=== PATIENT | female | born 2005 | race Caucasian/White ===

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

== ENCOUNTER 2023-07-26 22:23 | Emergency (ER) | payer MEDICAID, SELFPAY ==
[2023-07-26 22:26] VITALS: BP 144/95; PULSE 122; RESP 18; TEMP 36.7; O2SAT 98
--- NOTE | 2023-07-26 22:30 | W.ED.GENAD ---
Discharge Plan Disposition Patient Disposition: Home Condition: Good Discharge Details Clinical Impression: Biliary colic Primary Care Provider: Unknown,Unknown ED Provider: Ba Powers Home Meds and New Rx's Prescriptions: No Action Nexplanon 68 mg implant 1 implant subdermal ONCE Rx Instructions: as a single dose albuterol sulfate [ProAir HFA] 90 mcg/actuation HFA aerosol inhaler 2 puff Inhalation Q4H PRN Qty: 8.5 0RF dextroamphetamine-amphetamine [Adderall] 12.5 mg tablet 12.5 mg PO DAILY MDD 12.5 mg Qty: 30 0RF Rx Instructions: take one tablet in the afternoon daily dextroamphetamine-amphetamine [Adderall XR] 30 mg capsule,extended release 24hr 30 mg PO DAILY MDD 1 Qty: 30 0RF Discharge Instructions Instructions: Biliary Colic (ED), Abdominal Pain (ED) Additional Instructions: At this time you have what is called biliary colic where your gallbladder is spasming which causes pain. Please avoid greasy foods, fatty foods, or dairy products as this can bring about this pain and spasm. If your symptoms persist you may need to be seen by a surgeon to have your gallbladder removed in the future although this is not needed at this time or emergently. If you notice any worsening of your symptoms, or any new symptoms such as vomiting, diarrhea, fever, chills, shortness of breath, chest pain, numbness, weakness, or fainting , please return immediately to the emergency department for reevaluation. Please follow up with your primary care provider as soon as possible for reassessment and reevaluation. As always, it was a pleasure participating in your medical care today. HPI General Date/Time Provider Initiated Documentation: 07/26/23 22:25. HPI Narrative: 17-year-old female with a past medical history of Implanon contraception, ADHD, asthma, ADHD, depression, presents today for evaluation of abdominal pain. States that about 30 minutes ago she was eating dinner when she had sudden severe aching pain throughout her entire abdomen. She had no vomiting. She states that her stomach felt firm and rockhard. She has nausea. She denies diarrhea. She began walking to the ER when her family picked her up, brought her to the ER. She denies any urinary complaints, pain is throughout her entire abdomen, but mostly in the upper abdomen. She denies fever or chills. No other sick contacts of people who ate the food with her. She had chicken pot pie and noodles. She denies symptoms like this in the past. Related Data Home Medications Medication Instructions Recorded Confirmed albuterol sulfate 90 mcg/actuation 2 puff inhalation Q4H PRN #8.5 05/11/18 07/26/23 aerosol inhaler (ProAir HFA) grams etonogestrel 68 mg subdermal 1 implant subdermal ONCE 05/10/20 07/26/23 implant (Nexplanon) dextroamphetamine-amphetamine 12.5 12.5 mg PO DAILY #30 tabs 06/22/21 07/26/23 mg tablet (Adderall) dextroamphetamine-amphetamine ER 30 mg PO DAILY #30 caps 06/22/21 07/26/23 30 mg 24hr capsule,extend release (Adderall XR) Previous Rx's Medication Instructions Recorded albuterol sulfate 90 mcg/actuation 2 puff inhalation Q4H PRN #8.5 05/11/18 aerosol inhaler (ProAir HFA) grams dextroamphetamine-amphetamine 12.5 12.5 mg PO DAILY #30 tabs 06/22/21 mg tablet (Adderall) dextroamphetamine-amphetamine ER 30 mg PO DAILY #30 caps 06/22/21 30 mg 24hr capsule,extend release (Adderall XR) Allergies Allergy/AdvReac Type Severity Reaction Status Date / Time Penicillins Allergy Intermediate RASH Verified 07/26/23 22:31 amoxicillin Allergy Other (See Verified 07/26/23 22:31 Comment) General Stated Complaint: Abd Prob CHUY: 3 Review of Systems All systems reviewed & are unremarkable except as noted in HPI and below Exam Narrative Exam Narrative: 1.Const: Well-nourished, Well-developed, appearing stated age 2.Eyes: PERRL, no conjunctival injection, and symmetrical lids. 3.ENT: Atraumatic external nose and ears. Moist MM. Neck: Symmetric, trachea midline, No thyromegaly. 4.CVS: +S1/S2, No murmurs or gallops. Peripheral pulses 2+ and equal in all extremities. Brisk capillary refill in all extremities. 5.RESP: Unlabored respiratory effort. Clear to auscultation bilaterally. No wheezes rales or rhonchi 6.GI: Soft, nondistended. No guarding. Mild to moderate tenderness in the epigastric and right upper quadrant. No pain at McBurney's point. No significant lower abdominal tenderness. 7.MSK: Normocephalic/Atraumatic, Extremities w/o deformity or ttp No cyanosis or clubbing, Normal movement of all extremities 8.Skin: Warm, Dry. No rashes or lesions. 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 Sensation grossly intact, no focal neurologic deficits. 10.Psych: (AAO) x3. Appropriate mood and affect Course Vital Signs Vital signs: Vital Signs Temperature 36.7 C 07/26/23 22:26 Pulse 122 H 07/26/23 22:26 Respiratory Rate 18 07/26/23 22:26 Blood Pressure 144/95 H 07/26/23 22:26 Pulse Oximetry 98 07/26/23 22:26 Temperature 36.7 C 07/26/23 22:26 Pulse 122 H 07/26/23 22:26 Respiratory Rate 18 07/26/23 22:26 Blood Pressure 144/95 H 07/26/23 22:26 Pulse Oximetry 98 07/26/23 22:26 Oxygen Delivery Method Room Air 07/26/23 22:26 Oxygen Flow Rate 0 07/26/23 22:26 Pain Level 10 07/26/23 22:26 Medical Decision Making 17-year-old female with a past medical history of Implanon contraception, ADHD, asthma, ADHD, depression, presents today for evaluation of abdominal pain. States that about 30 minutes ago she was eating dinner when she had sudden severe aching pain throughout her entire abdomen. She had no vomiting. She states that her stomach felt firm and rockhard. She has nausea. She denies diarrhea. She began walking to the ER when her family picked her up, brought her to the ER. She denies any urinary complaints, pain is throughout her entire abdomen, but mostly in the upper abdomen. She denies fever or chills. No other sick contacts of people who ate the food with her. She had chicken pot pie and noodles. She denies symptoms like this in the past. Physical exam demonstrates well-appearing female who appears to be in mild to moderate pain. Pain appears to be mostly in the epigastric and right upper quadrant. Differential is highest for biliary colic, pancreatitis, less likely obstruction. Symptoms appearing consistent with AAA clinically. Pulses intact throughout all extremities with no variability. Abdomen is nonsurgical at this time. Will hold off on imaging for the time being, give Toradol, check labs, give Bentyl, rehydrate monitor closely and reassess. 12:28 AM Patient's laboratory workup has returned, minimal white count, no bandemia. Electrolytes normal, urinalysis negative for infection, lipase normal. Patient had only mild improvement of her pain with Toradol and Zofran and Bentyl. Repeat exam continues to show right upper quadrant tenderness/achiness. 4 of morphine was given. CT scan was ordered, CT scan shows no evidence of cholecystitis or appendicitis, however there is a notably contra gallbladder. No biliary ductal dilatation. Patient shows no other concerning abnormalities on CT imaging per radiology. Patient feels much better on reassessment after reassessment and CT imaging. Pain has resolved. Symptoms appear consistent with mild biliary colic. Will recommend avoidance of greasy foods, dairy products, and other exacerbating foods. Patient states that she may have a hard time with this secondary to the nature of how her family cooks. I encouraged her to avoid these foods. I have extensively reviewed the treatment plan and discharge instructions with the patient. I have addressed all patient concerns at this time. The patient was made aware of what symptoms to monitor for that would warrant a return to the emergency department. Discussed the plan with the patient, they demonstrate verbal understanding and agreement with our assessment and plan at this time. The documentation in this chart was dictated using [employer] dictation software. Please excuse any dictation errors. FINDINGS: Liver: No hepatic masses. Gallbladder and bile ducts: The gallbladder is contracted. No significant biliary dilation or radiopaque stones in the biliary tree. Pancreas: No ductal dilation. No masses. Spleen: No splenomegaly or focal lesions. Adrenal glands: No mass. Kidneys and ureters: No renal masses or hydronephrosis bilaterally. Stomach and bowel: Submucosal fat deposition in the colon, likely habitus and or diet related. Moderate colonic stool burden. No colitis or diverticular disease. Appendix: Normal morphology of the appendix. Intraperitoneal space: No free air. No significant fluid collection. Vasculature: No abdominal aortic aneurysm. Lymph nodes: Mesenteric lymph nodes appear within normal limits for age. No significant adenopathy is seen. Urinary bladder: Unremarkable as visualized. Reproductive: Unremarkable as visualized. Bones/joints: Minor distal lumbar spondylosis. No acute fracture or subluxation. Soft tissues: No focal soft tissue lesion or collection. Other findings: Motion artifact in the abdomen. IMPRESSION: 1. No acute findings. 2. Incidental findings as described. Thank you for allowing us to participate in the care of your patient. Dictated and Authenticated by: Leena Gonzalez MD 07/27/2023 12:12 AM Eastern Time ([place] & [place]) Quality:SDOH Health Related Social Needs: No Data to Display PFSH All Active Problems (Updated 07/27/23 @ 00:24 by Ba Powers DO) Biliary colic (Acute) Contusion of rib on right side (Acute) Insomnia (Acute) Acne (Acute) Nausea & vomiting (Acute) Concussion (Acute) Cervical strain (Acute) Well adolescent visit (Acute) Depression (Acute) Learning difficulty (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) per school tested w/ low IQ Contraception (Acute 09/15/17) Attention deficit hyperactivity disorder (ADHD) (Chronic 06/16/12) Medical History Asthma Allergy to penicillin ADHD (attention deficit hyperactivity disorder) Insomnia History of abnormal weight loss Surgical History lump removal, behind right ear Had surgery at [facility] [place] Removal of foreign body ROCK REMOVED FROM EAR Family History Mother Diabetes Essential hypertension Conductive hearing loss, childhood onset Hyperlipidemia Mental disorder BIPOLAR, depression, anxiety Neoplasm ADHD (attention deficit hyperactivity disorder) Asthma Father Essential hypertension Hyperlipidemia Sister Substance abuse alcohol abuse Other Substance abuse grandparent - alcohol Hyperlipidemia grandparent Neoplasm grandparent Asthma grandparent Social History Smoking/Tobacco Use Status: Never Smoking risk assessment performed?: Yes Alcohol Intake: never Drug use: Never Substance use type: does not use Pets and animals: Yes Pets and animals: cat(s), bird(s) and other Details: rabbit Do you feel safe at home: Yes Do you feel safe in your relationship?: Yes Additional Social history: sister Felicity Mitchell, 2 yrs younger History History 0 Para Hx # Term Pregnancies Multiple births Hx # Pregnancies Ectopic pregnancies AB induced Hx Number of Living Children AB spontaneous
[2023-07-26] MEDS: Ondansetron 4 MG/2 ML VIAL IVP (22:36)
[2023-07-26] MEDS: Ketorolac 15 MG/ML VIAL IVP (22:37)
[2023-07-26] MEDS: Dicyclomine 10 MG CAP PO (22:39)
[2023-07-26] MEDS: Lactated Ringers 1,000 ML 1000 ML IV (22:39)
[2023-07-26 23:00] LABS: Abs Immature Grans 0.04 10^3/uL (0.0-0.06); Absolute Eosinophil Count 0.08 10^3/uL (0.0-0.7); Absolute Lymphocyte Count 3.08 10^3/uL (1.2-3.4); Basophils % 0.4; Eosinophils % 0.6; HCT 43.9 % (36.0-46.0); HGB 14.9 g/dL (11.2-15.7); Immature Grans % 0.3; Lymphocytes % 22.7; MCH 28.9 pg (27.0-33.0); MCHC 33.9 % (32.0-36.0); MCV 85 fL (80-95); MPV 10.6 fL (8.0-11.0); Monocytes % 6.3; Neutrophils % 69.7; Platelet Count 323 10^3/uL (130-400); RBC 5.16 10^6/uL (3.93-5.22); RDW 13.1 % (11.7-14.6); RDW-SD 40.7 fL; WBC 13.57 10^3/uL (4.4-10.8)
[2023-07-26 23:01] LABS: Absolute Basophil Count 0.05 10^3/uL (0.0-0.2); Absolute Monocyte Count 0.85 10^3/uL (0.1-0.8); Absolute Neutrophil Count 9.46 10^3/uL (1.2-6.7)
[2023-07-26 23:10] LABS: Bilirubin Negative (Negative); Blood Negative (Negative); Clarity Clear (Clear); Glucose Negative (Negative); Ketones Negative (Negative); Leukocyte Esterase Negative (Negative); Nitrite Negative (Negative); Specific Gravity >= 1.030 (1.005-1.025); Urobilinogen 0.2 mg/dL (Up to 0.2)
[2023-07-26 23:13] LABS: ALT 25 U/L (14-59); AST 21 U/L (15-37); Albumin 4.3 g/dL (3.4-5.0); Alkaline Phosphatase 106 U/L (46-116); Anion Gap 13.3 mmol/L (3-11); BUN 13 mg/dL (7-18); Bilirubin, Total 0.4 mg/dL (0.2-1.0); CO2 26.7 mmol/L (21.0-32.0); CREATININE 0.9 mg/dL (0.55-1.02); Calcium 8.9 mg/dL (8.5-10.1); Chloride 104 mmol/L (98-107); Estimated GFR 94.44 (mL/min/1.73m2); Glucose 115 mg/dL (74-106); Lipase 28 U/L (16-77); Potassium 3.5 mmol/L (3.5-5.1); Sodium 144 mmol/L (136-145); Total Protein 8.1 g/dL (6.4-8.2)
[2023-07-26 23:14] LABS: Bacteria Rare HPF (Negative); C & S Indicated? No; Casts Negative LPF (Negative); Crystals Negative HPF (Negative); Epithelial Cells Many HPF (Negative); Mucus Negative (Negative); RBC 0-2 HPF (0-2); WBC 0-2 HPF (0-5)
[2023-07-26] MEDS: MORPHine 4 MG/ML SYR IVP (23:48)
--- NOTE | 2023-07-26 23:50 | DI.CT_ITS ---
Exam(s) CT ABDOMEN PELVIS W EXAM: CT ABDOMEN PELVIS W CLINICAL HISTORY: epigastric and RUQ pain, eval GB. TECHNIQUE: Imaging Protocol: Axial computed tomography images with coronal and sagittal reformatted images were created and reviewed CONTRAST MATERIAL: Intravenous: Omnipaque 350 Contrast volume:100 ml Oral: no COMPARISON: No exams were available for comparison FINDINGS: ABDOMEN and PELVIS: Exam mildly limited by motion. Lung Bases: No acute findings. Liver: Normal density. No measurable mass. Gallbladder and biliary tract: Gallbladder is contracted. There is motion artifact in this area. No radiodense calculus or biliary dilation. Pancreas: Normal density. No abnormal calcifications or inflammatory process. No evidence of mass. Spleen: Normal. Kidneys: Normal size, contour and axis. No radiodense stones. No obstructive uropathy. No suspicious masses seen. Adrenal glands: No masses seen. Vasculature: Abdominal aorta non-dilated. Soft tissues: Unremarkable. Bladder: Nearly empty. No gross wall thickening. No calculi.No focal mass. Bowel: No obstruction. No bowel wall thickening. Appendix normal.Moderate quantity of stool. Peritoneal cavity: No ascites. No focal collection or mesenteric inflammatory response. Bones: Mild degenerative disc changes at L5-S1. Reproductive organs: Within normal limits. Lymph nodes: Unremarkable. IMPRESSION:: No acute abnormality in the abdomen or pelvis. RADIATION DOSE DELIVERED: Total DLP DATA REPOSITORY: All CT scans at this facility are submitted to the National Radiology Data Registry (NRDR) Dose Index Registry (DIR) with the [employer] (ACR). RADIATION OPTIMIZATION: All CT scans at this facility use at least one of these dose optimization te chniques: automated exposure control; mA and/or kV adjustment per patient size (includes targeted exa ms where dose is matched to clinical indication); or iterative reconstruction.
[2023-07-26] MEDS: Omnipaque 350 MG/ML 100 ML BTL IJ (23:51)
[2023-07-26] MEDS: Normal Saline - Diluent 50 ML VIAL IJ (23:51)
--- NOTE | 2023-07-27 00:13 | DI.VRAD_ITS ---
PROCEDURE INFORMATION: Exam: CT Abdomen And Pelvis With Contrast Exam date and time: 07/26/2023 23:35 Age: 17 years old Clinical indication: Other: Epigastric and ruq pain, eval gb TECHNIQUE: Imaging protocol: Computed tomography of the abdomen and pelvis with contrast. Contrast material: OMNIPAQUE 350; Contrast volume: 100 ml; Contrast route: INTRAVENOUS (IV); COMPARISON: CR XR RIBS RT W PA LAT CHEST 03/19/2021 16:49 FINDINGS: Liver: No hepatic masses. Gallbladder and bile ducts: The gallbladder is contracted. No significant biliary dilation or radiopaque stones in the biliary tree. Pancreas: No ductal dilation. No masses. Spleen: No splenomegaly or focal lesions. Adrenal glands: No mass. Kidneys and ureters: No renal masses or hydronephrosis bilaterally. Stomach and bowel: Submucosal fat deposition in the colon, likely habitus and or diet related. Moderate colonic stool burden. No colitis or diverticular disease. Appendix: Normal morphology of the appendix. Intraperitoneal space: No free air. No significant fluid collection. Vasculature: No abdominal aortic aneurysm. Lymph nodes: Mesenteric lymph nodes appear within normal limits for age. No significant adenopathy is seen. Urinary bladder: Unremarkable as visualized. Reproductive: Unremarkable as visualized. Bones/joints: Minor distal lumbar spondylosis. No acute fracture or subluxation. Soft tissues: No focal soft tissue lesion or collection. Other findings: Motion artifact in the abdomen. IMPRESSION: 1. No acute findings. 2. Incidental findings as described. Dictated and Authenticated by: Leena Gonzalez MD. Ordering:EMILY Cosme MD
[2023-07-27 00:33] VITALS: BP 137/69; PULSE 72; RESP 16; O2SAT 99
[2023-07-27] MEDS: Acetaminophen 500 MG TAB 1000 MG PO (00:33)
== END 2023-07-27 00:35 | disposition home or self-care (01) ==
PROVIDERS: Emergency Provider Student in an Organized Health Care Education/Training Program
DX: R10.11 Right upper quadrant pain (principal); R11.0 Nausea; K80.50 Calculus of bile duct without cholangitis or cholecystitis without obstruction
CPT/HCPCS: 36415; 80053; 81025; 83690; 96361; 96374; 96375; 99285; 74177; 81003; 81015; 85025; 99283; J1885; J2270; J2405; J3490

== ENCOUNTER → 2023-08-12 05:19 | Outpatient (CLI) | payer MEDICAID, SELFPAY ==
--- NOTE | 2023-08-12 | DI.US_ITS ---
Exam(s) US ABDOMEN EXAM: US ABDOMEN CLINICAL HISTORY: ABD PAIN, R10.9 TECHNIQUE: Ultrasound abdomen performed using standard protocol. COMPARISON: CT CT ABDOMEN PELVIS W from 07/26/2023 FINDINGS: ABDOMINAL AORTA AND IVC: Visualized portions normal caliber. PANCREAS: Normal where visualized. LIVER: Normal. Hepatopetal flow in the Portal Vein. The liver measures 14.4 cm long. GALLBLADDER:No evidence of cholelithiasis. No evidence of wall thickening. No pericholecystic fluid i dentified. BILIARY SYSTEM: Common bile duct measures < 7 mm. No intrahepatic biliary ductal dilation. LINDSEY'S SIGN: Negative. KIDNEYS: Kidneys are symmetric in size. No evidence of renal calculi. No evidence of hydronephrosis. No renal mass or cyst identified. SPLEEN: Not enlarged. ASCITES: None seen. IMPRESSION: Normal sonographic appearance of the upper abdomen. DATA REPOSITORY:
== END ==
PROVIDERS: Visit Provider Nurse Practitioner Family
DX: R10.9 Unspecified abdominal pain (principal)
CPT/HCPCS: 76700

== ENCOUNTER 2023-11-01 01:16 | Emergency (ER) | payer MEDICAID, SELFPAY ==
[2023-11-01] VITALS (25 sets, daily range): BP systolic 96–193; BP diastolic 53–178; PULSE 65–161; RESP 5–24; TEMP 36.3; O2SAT 89–100
--- NOTE | 2023-11-01 01:23 | ED.GENADUL_ITS ---
Discharge Plan Disposition Patient Disposition: Home Condition: Good Discharge Details Chief Complaint: SOB/SuddenOnset Clinical Impression: Asthma exacerbation Primary Care Provider: Mariela Lawson ED Provider: Ba Powers Home Meds and New Rx's Prescriptions: No Action Nexplanon 68 mg implant 1 implant subdermal ONCE Rx Instructions: as a single dose albuterol sulfate [ProAir HFA] 90 mcg/actuation HFA aerosol inhaler 2 puff Inhalation Q4H PRN Qty: 8.5 0RF dextroamphetamine-amphetamine [Adderall] 12.5 mg tablet 15 mg PO DAILY MDD 12.5 mg Rx Instructions: take one tablet in the afternoon daily Discharge Instructions Instructions: Asthma in adults Additional Instructions: At this time your chest x-ray shows no evidence of pneumonia or other significant abnormality. Your oxygen saturations are excellent, and you have no more wheezes on your exam. I suspect you had a mild asthma exacerbation. Please continue to use your inhaler at home as needed. Avoid tobacco or cannabis smoke exposure. If you notice any worsening of your symptoms, or any new symptoms such as vomiting, diarrhea, fever, chills, shortness of breath, chest pain, numbness, weakness, or fainting , please return immediately to the emergency department for reevaluation. Please follow up with your primary care provider as soon as possible for reassessment and reevaluation. As always, it was a pleasure participating in your medical care today. Referrals: Mariela Lawson [Primary Care Provider] - [facility] General Date/Time Provider Initiated Documentation: 11/01/23 01:23 . HPI Narrative: 18-year-old female with a past medical history of ADHD, asthma, presents today for shortness of breath. Patient states that she was down at [facility] when her significant other was smoking a joint. Shortly thereafter she began to feel short of breath. She states that it feels like her previous asthma exacerbations. She got very nervous and her hands began to shake, then she was brought to the ER for further assessment. She denies any chest pain headache neck pain numbness tingling or weakness. She denies any drug use or personal smoking. She is not exposed to any other wood fire smoke. No other complaints at this time. She states her last eczema exacerbation was a few weeks ago. Related Data Home Medications ?Medication ?Instructions ?Recorded ?Confirmed albuterol sulfate 90 mcg/actuation 2 puff inhalation Q4H PRN #8.5 05/11/18 aerosol inhaler (ProAir HFA) grams etonogestrel 68 mg subdermal 1 implant subdermal ONCE 05/10/20 11/01/23 implant (Nexplanon) dextroamphetamine-amphetamine 12.5 15 mg PO DAILY 11/01/23 11/01/23 mg tablet (Adderall) Previous Rx's ?Medication ?Instructions ?Recorded albuterol sulfate 90 mcg/actuation 2 puff inhalation Q4H PRN #8.5 05/11/18 aerosol inhaler (ProAir HFA) grams Allergies Allergy/AdvReac Type Severity Reaction Status Date / Time Penicillins Allergy Intermediate RASH Verified 09/22/23 15:22 amoxicillin Allergy Other (See Verified 09/22/23 15:22 Comment) General CHUY: 3 Review of Systems All systems reviewed & are unremarkable except as noted in HPI and below Exam Narrative Exam Narrative: 1.Const: Well-nourished, Well-developed, appearing stated age 2.Eyes: PERRL, no conjunctival injection, and symmetrical lids. 3.ENT: Atraumatic external nose and ears. Moist MM. Neck: Symmetric, trachea midline, No thyromegaly. 4.CVS: +S1/S2, No murmurs or gallops. Peripheral pulses 2+ and equal in all extremities. Brisk capillary refill in all extremities. 5.RESP: Tachypneic. Minimal wheezes. No rhonchi. No rales. 6.GI: Soft, Nontender/Nondistended, No hepatosplenomegaly. No guarding or rebound. 7.MSK: Normocephalic/Atraumatic, Extremities w/o deformity or ttp No cyanosis or clubbing, Normal movement of all extremities 8.Skin: Warm, Dry. No rashes or lesions. 9.Neuro: nutrition internship II-XII grossly intact. Sensation grossly intact, no focal neurologic deficits. 10.Psych: (AAO) x3. Very anxious appearing Medical Decision Making 18-year-old female with a past medical history of ADHD, asthma, presents today for shortness of breath. Patient states that she was down at [facility] when her significant other was smoking a joint. Shortly thereafter she began to feel short of breath. She states that it feels like her previous asthma exacerbations. She got very nervous and her hands began to shake, then she was brought to the ER for further assessment. She denies any chest pain headache neck pain numbness tingling or weakness. She denies any drug use or personal smoking. She is not exposed to any other wood fire smoke. No other complaints at this time. She states her last eczema exacerbation was a few weeks ago. Exam demonstrates an anxious and tachypneic female, no chest pain. Minimal wheezes. No calf tenderness. No history of PEs. Symptoms appearing consistent with PE, dissection or ACS. Symptoms appear more concerning for an asthma exacerbation based on current clinical symptomatology. Will give a DuoNeb, monitor closely and reassess. No trauma to suggest pneumothorax. No fever or chills to represent pneumonia. 3:36 AM X-ray results have returned, no acute process, lungs are notably clear, oxygenation excellent. Patient is feeling much better. No tachypnea, no shortness of breath whatsoever. She was given a small dose of Ativan IV and this made a significant difference. I suspect she had a combination of reactive airway exacerbation secondary to exposure to the cannabis smoke from her sig nificant other, and then exacerbated potentially by an anxious component. Regardless the patient feels well at this time and is stable for discharge. Patient will be discharged home. Recommend continued albuterol use as needed. Discussed red flags which to return. I have extensively reviewed the treatment plan and discharge instructions with the patient and their family. I have addressed all patient concerns at this time. The patient and family was made aware of what symptoms to monitor for that would warrant a return to the emergency department. Discussed the plan with the patient and family, they demonstrate verbal understanding and agreement with our assessment and plan at this time. The documentation in this chart was dictated using [employer] dictation software. Please excuse any dictation errors. FINDINGS: Lungs: Unremarkable. No consolidation. Pleural spaces: Unremarkable. No pleural effusion. No pneumothorax. Heart/Mediastinum: Unremarkable. No cardiomegaly. Bones/joints: Unremarkable. IMPRESSION: No acute findings. Thank you for allowing us to participate in the care of your patient. 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 Contraception (Acute 09/22/23) Nexplanon Attention deficit hyperactivity disorder (ADHD) (Chronic 06/16/12) Medical History Asthma Allergy to penicillin ADHD (attention deficit hyperactivity disorder) Insomnia History of abnormal weight loss Surgical History lump removal, behind right ear [place] [facility] [place] body ROCK REMOVED FROM EAR Family History Mother Diabetes Essential hypertension Conductive hearing loss, childhood onset Hyperlipidemia Mental disorder BIPOLAR, depression, anxiety Neoplasm ADHD (attention deficit hyperactivity disorder) Asthma Father Essential hypertension Hyperlipidemia Sister Substance abuse alcohol abuse Other Substance abuse grandparent - alcohol Hyperlipidemia grandparent Neoplasm grandparent Asthma grandparent Social History Smoking/Tobacco Use Status: Never Smoking risk assessment performed?: Yes Alcohol Intake: never Drug use: Rarely Substance use type: marijuana Details: Hx of hyperemesis from cannabinoids. Pets and animals: Yes Pets and animals: cat(s), bird(s) and other Details: rabbit Do you feel safe at home: Yes Do you feel safe in your relationship?: Yes Additional Social history: sister Felicity Mitchell, 2 yrs younger History History 0 Para Hx # Term Pregnancies Multiple births Hx # Pregnancies Ectopic pregnancies AB induced Hx Number of Living Children AB spontaneous
[2023-11-01] MEDS: Albuterol/Ipratropium 3 ML UPD VIAL (01:24)
--- NOTE | 2023-11-01 01:45 | DI.RAD_ITS ---
Exam(s) XR PORTABLE CHEST AP EXAM: XR PORTABLE CHEST AP CLINICAL HISTORY: SOB, asthma TECHNIQUE: 2D digital imaging was performed of the chest. One image was obtained. An AP view was ob tained. COMPARISON: CR,XR XR RIBS RT W PA LAT CHEST from 03/19/2021 FINDINGS: MEDIASTINUM: Normal. HEART: Normal. PULMONARY VASCULATURE: Normal. LUNGS: Clear. PLEURAL SPACE: No pleural effusion or pneumothorax. BONE:Within normal limits for the patient's age. OTHER FINDINGS:Normal. IMPRESSION: No acute pulmonary findings. DATA REPOSITORY: RADIATION DOSE DELIVERED:
[2023-11-01] MEDS: LORazepam 0.5 MG TAB PO (02:25)
--- NOTE | 2023-11-01 03:28 | DI.VRAD_ITS ---
PROCEDURE INFORMATION: Exam: XR Chest Exam date and time: 11/01/2023 2:43 AM Age: 18 years old Clinical indication: Shortness of breath; Additional info: SOB, asthma TECHNIQUE: Imaging protocol: Radiologic exam of the chest. Views: 1 view. COMPARISON: CR XR RIBS RT W PA LAT CHEST 03/19/2021 4:49 PM FINDINGS: Lungs: Unremarkable. No consolidation. Pleural spaces: Unremarkable. No pleural effusion. No pneumothorax. Heart/Mediastinum: Unremarkable. No cardiomegaly. Bones/joints: Unremarkable. IMPRESSION: No acute findings. Dictated and Authenticated by: Eric Meraz MD. Ordering:EMILY Cosme MD
== END 2023-11-01 04:20 | disposition home or self-care (01) ==
PROVIDERS: Emergency Provider Student in an Organized Health Care Education/Training Program; PCP Nurse Practitioner Family
DX: J45.901 Unspecified asthma with (acute) exacerbation (principal); F41.9 Anxiety disorder, unspecified
CPT/HCPCS: 81025; 94640; 99285; 71045; 99284; J7620

== ENCOUNTER 2023-11-07 20:17 | Emergency (ER) | payer MEDICAID, SELFPAY ==
[2023-11-07] VITALS (93 sets, daily range): BP systolic 110–138; BP diastolic 68–105; PULSE 74–93; RESP 10–32; TEMP 36.8; O2SAT 95–100
--- NOTE | 2023-11-07 20:30 | RT.EKG_ITS ---
APPROVED REPORT Exam: Resting ECG Reason for Exam: CP/SOB Patient Location: E HR:83 bpm ECG Measurements Heart Rate 83 AXIS [place] 137 P 0 QRSd 89 QRS 33 QT 368 T 31 QTc 434 Conclusion Sinus rhythm...normal P axis, V-rate 60- 99
--- NOTE | 2023-11-07 20:30 | DI.RAD_ITS ---
Exam(s) XR CHEST 2V PA LATERAL EXAM: XR CHEST 2V PA LATERAL CLINICAL HISTORY: CP/SOB TECHNIQUE: 2D digital imaging was performed. Two views. COMPARISON: No exams were available for comparison FINDINGS: HEART: Normal size. Aorta: Not dilated. PULMONARY VASCULATURE: Normal. MEDIASTINUM: Unremarkable. LUNGS: Clear. PLEURAL SPACE: No pleural effusion or pneumothorax. BONE:Unremarkable for age. SOFT TISSUES: Unremarkable. IMPRESSION: No acute abnormality. DATA REPOSITORY: RADIATION DOSE DELIVERED:
--- NOTE | 2023-11-07 20:32 | ED.GENADUL_ITS ---
Discharge Plan Disposition Patient Disposition: Home Discharge Details Clinical Impression: Dizziness, Dehydration, Chest discomfort Primary Care Provider: Mariela Lawson ED Provider: Alvina Casas Home Meds and New Rx's Prescriptions: No Action Nexplanon 68 mg implant 1 implant subdermal ONCE Rx Instructions: as a single dose albuterol sulfate [ProAir HFA] 90 mcg/actuation HFA aerosol inhaler 2 puff Inhalation Q4H PRN Qty: 8.5 0RF dextroamphetamine-amphetamine [Adderall] 12.5 mg tablet 15 mg PO DAILY MDD 12.5 mg Rx Instructions: take one tablet in the afternoon daily Discharge Instructions Additional Instructions: Please call your primary care provider first thing Friday morning to schedule follow-up appointment in the next couple of weeks. I recommend that you discuss today's emergency department visit. Your workup today was very reassuring. Symptoms are likely caused by dehydration. Please be sure to drink plenty of water throughout the day and eat regular meals. Return to emergency care if you develop new episodes of passing out, difficulty breathing, severe abdominal pain, or if you are very worried and need to be rechecked again immediately Referrals: Mariela Lawson [Primary Care Provider] - [facility] General Date/Time Provider Initiated Documentation: 11/07/23 20:19 . [facility] Narrative: Joann is a 18 year old female who presents to the emergency department today for evaluation of syncopal episode, as well as chest pain. She reports that this afternoon she was laying in bed and got up, felt dizzy, warm, nauseated, this resulted in her passing out. She attempted to walk to the emergency department, but en route she developed chest discomfort, abdominal pains described as a generalized stabbing pain in her abdomen, and numbness to her fingers. She denies fever/chills, headache, vision changes, congestion, sore throat, cough, nausea/vomiting, change in bowel or bladder function. She does have Nexplanon implant in place. She says she does not take medication for anxiety, but does have anxiety attacks with numbness in her hands. She does not know how much she had to drink today, says that she only urinated once. Physical exam very reassuring. Patient is alert and oriented, no acute distress. Tacky mucous membranes. Easy work of breathing, lung sounds clear bilaterally. Normal heart sounds. Abdomen is soft, diffusely tender to palpation, normal active bowel sounds. No rigidity or guarding. Moving all extremities equally. No calf swelling or redness. No obvious lesions or rashes. DDx includes but is not limited to: Cardiac arrhythmia, ACS less likely based on lack of cardiac risk factors and reassuring history, dehydration, electrolyte imbalance, orthostatic hypotension, anxiety, GERD, hypoglycemia. Heart score 0 indicating low risk of Mace. I independently interpreted the following tests: CBC reassuring, only mild leukocytosis with white cell count 11.61. CMP unremarkable. TSH reassuring. Troponin negative. UA reassuring, moderate blood noted. EKG reassuring, normal sinus rhythm rate 83, no changes consistent with acute ischemia. Chest x-ray reassuring, no infiltrates or cardiomegaly noted, this was confirmed by radiologist. While in the emergency department Joann received 1 L normal saline and Toradol with good improvement in symptoms, says she is feeling totally better at this time. She has been able to tolerate p.o. meka dave without difficulty. Unclear etiology of symptoms, likely anxiety related or mild dehydration. No red flags on history or physical exam concerning for serious etiology of syncope. Reviewed discharge instructions with patient, including importance of good hydration, regular meals throughout the day, and follow-up with PCP as needed. Related Data Home Medications ?Medication ?Instructions ?Recorded ?Confirmed albuterol sulfate 90 mcg/actuation 2 puff inhalation Q4H PRN #8.5 05/11/18 11/07/23 aerosol inhaler (ProAir HFA) grams etonogestrel 68 mg subdermal 1 implant subdermal ONCE 05/10/20 11/07/23 implant (Nexplanon) dextroamphetamine-amphetamine 12.5 15 mg PO DAILY 11/01/23 11/07/23 mg tablet (Adderall) Previous Rx's ?Medication ?Instructions ?Recorded albuterol sulfate 90 mcg/actuation 2 puff inhalation Q4H PRN #8.5 05/11/18 aerosol inhaler (ProAir HFA) grams Allergies Allergy/AdvReac Type Severity Reaction Status Date / Time Penicillins Allergy Intermediate RASH Verified 11/07/23 19:59 amoxicillin Allergy Other (See Verified 11/07/23 19:59 Comment) General Stated Complaint: Dizzy/Sync CHUY: 3 Review of Systems Narrative: see HPI Exam Const General: cooperative, healthy appearing, comfortable, no acute distress, well developed and anxious Nutritional Appearance: average body habitus HENMA Head: normal to inspection General nose exam: external nose normal Face and sinus: normal facial exam and dry mucous membranes Mouth: oral mucosae normal Throat: posterior oropharynx normal Eyes Pupils: PERRL EOM: EOM intact bilaterally Resp Effort & Inspection: normal respiratory effort and able to speak in complete sentences Auscultation: clear to auscultation bilaterally Cardio Rate: regular rate Rhythm: regular rhythm GI Inspection: normal to inspection and non-distended Palpation: soft, no guarding, no pulsatile masses, not rigid and tender (diffuse) Auscultation: normal bowel sounds Skin General skin exam: no rashes or lesions noted Course Vital Signs Vital signs: Vital Signs Temperature 36.8 C 11/07/23 20:21 Pulse 89 11/07/23 20:21 Respiratory Rate 22 11/07/23 20:21 Blood Pressure 138/105 H 11/07/23 20:21 Pulse Oximetry 95 11/07/23 20:21 Temperature 36.8 C 11/07/23 20:21 Temperature Source Temporal Artery Scan 11/07/23 20:21 Pulse 89 11/07/23 20:21 Respiratory Rate 22 11/07/23 20:21 Blood Pressure 138/105 H 11/07/23 20:21 Blood Pressure Position Sitting 11/07/23 20:21 Pulse Oximetry 95 11/07/23 20:21 Oxygen Delivery Method Room Air 11/07/23 20:21 Oxygen Flow Rate 0 11/07/23 20:21 Pain Level 8 11/07/23 20:21 Medical Decision Making Quality:SDOH Health Related Social Needs: No Data to Display PFSH All Active Problems (Updated 11/07/23 @ 22:51 by Alvina Rea) Chest discomfort (Acute) Dehydration (Acute) Dizziness (Acute) Asthma exacerbation (Acute) Contusion of rib on right side (Acute) Insomnia (Acute) Acne (Acute) Nausea & vomiting (Acute) Concussion (Acute) Cervical strain (Acute) Well adolescent visit (Acute) Depression (Acute) Learning difficulty (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) per school 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/ low IQ Contraception (Acute 09/22/23) Nexplanon Attention deficit hyperactivity disorder (ADHD) (Chronic 06/16/12) Medical History Asthma Allergy to penicillin ADHD (attention deficit hyperactivity disorder) Insomnia History of abnormal weight loss Surgical History lump removal, behind right ear Had [place] [facility] [place] Removal of foreign body ROCK REMOVED FROM EAR Family History Mother Diabetes Essential hypertension Conductive hearing loss, childhood onset Hyperlipidemia Mental disorder BIPOLAR, depression, anxiety Neoplasm ADHD (attention deficit hyperactivity disorder) Asthma Father Essential hypertension Hyperlipidemia Sister Substance abuse alcohol abuse Other Substance abuse grandparent - alcohol Hyperlipidemia grandparent Neoplasm grandparent Asthma grandparent Social History Smoking/Tobacco Use Status: Never Smoking risk assessment performed?: Yes Alcohol Intake: never Drug use: Rarely Substance use type: marijuana Details: Hx of hyperemesis from cannabinoids. Pets and animals: Yes Pets and animals: cat(s), bird(s) and other Details: rabbit Do you feel safe at home: Yes Do you feel safe in your relationship?: Yes Additional Social history: sister Felicity Mitchell, 2 yrs younger History History 0 Para Hx # Term Pregnancies Multiple births Hx # Pregnancies Ectopic pregnancies AB induced Hx Number of Living Children AB spontaneous
[2023-11-07 20:37] LABS: Abs Immature Grans 0.04 10^3/uL (0.0-0.06); Absolute Basophil Count 0.05 10^3/uL (0.0-0.2); Absolute Eosinophil Count 0.03 10^3/uL (0.0-0.7); Absolute Lymphocyte Count 2.33 10^3/uL (1.2-3.4); Absolute Monocyte Count 0.77 10^3/uL (0.1-0.8); Absolute Neutrophil Count 8.39 10^3/uL (1.2-6.7); Basophils % 0.4 %; Eosinophils % 0.3 %; HGB 14.7 g/dL (11.2-15.7); Immature Grans % 0.3 %; Lymphocytes % 20.1 %; MCH 29.3 pg (27.0-33.0); MCHC 34.2 % (32.0-36.0); MCV 86 fL (80-95); MPV 10.7 fL (8.0-11.0); Monocytes % 6.6 %; Neutrophils % 72.3 %; Platelet Count 262 10^3/uL (130-400); RBC 5.02 10^6/uL (3.93-5.22); RDW 12.6 % (11.7-14.6); RDW-SD 39.4 fL; WBC 11.61 10^3/uL (4.4-10.8)
[2023-11-07] MEDS: Normal Saline 1,000 ML 1000 ML IV (20:56)
[2023-11-07] MEDS: Ketorolac 15 MG/ML VIAL IVP (20:56)
[2023-11-07 21:02] LABS: ALT 24 U/L (14-59); AST 15 U/L (15-37); Albumin 4.5 g/dL (3.4-5.0); Alkaline Phosphatase 83 U/L (46-116); Anion Gap 8.2 mmol/L (3-11); BUN 16 mg/dL (7-18); CO2 28.8 mmol/L (21.0-32.0); Calcium 9.6 mg/dL (8.5-10.1); Chloride 105 mmol/L (98-107); Estimated GFR 82.71 (mL/min/1.73m2); Glucose 104 mg/dL (74-106); Potassium 3.6 mmol/L (3.5-5.1); Sodium 142 mmol/L (136-145); TSH 2.12 uIU/Ml (0.36-3.74); Total Protein 8.3 g/dL (6.4-8.2); Troponin I < 50 ng/L (< or =60)
[2023-11-07 21:29] LABS: Bilirubin Negative (Negative); Blood Moderate (Negative); Clarity Clear (Clear); Glucose Negative (Negative); Ketones Trace mg/dL (Negative); Leukocyte Esterase Negative (Negative); Nitrite Negative (Negative); Specific Gravity 1.025 (1.005-1.025)
[2023-11-07 21:43] LABS: Bacteria Rare HPF (Negative); C & S Indicated? No/Sq. Contamination; Casts Negative LPF (Negative); Crystals Negative HPF (Negative); Epithelial Cells Moderate HPF (Negative); Mucus Moderate (Negative); Other Cells Rare Transitional (Negative); RBC 0-2 HPF (0-2); WBC 0-2 HPF (0-5)
--- NOTE | 2023-11-07 22:45 | DI.VRAD_ITS ---
PROCEDURE INFORMATION: Exam: XR Chest Exam date and time: 11/07/2023 9:39 PM Age: 18 years old Clinical indication: Shortness of breath; Additional info: Cp/sob TECHNIQUE: Imaging protocol: Radiologic exam of the chest. Views: 2 views. COMPARISON: CR XR PORTABLE CHEST AP 11/01/2023 2:43 AM FINDINGS: Lungs: Unremarkable. No consolidation. Pleural spaces: Unremarkable. No pleural effusion. No pneumothorax. Heart/Mediastinum: Unremarkable. No cardiomegaly. Bones/joints: Unremarkable. IMPRESSION: No acute findings. Dictated and Authenticated by: Rafael Landry MD. Ordering:ANTHONY Tinsley MD
[2023-11-07 22:55] LABS: Troponin I < 50 ng/L (< or =60)
--- NOTE | 2023-11-08 06:30 | NUR.NOTE ---
Faxed refferal for follow up to [facility] for recommended 1-2 weeks for syncope. Confirmation received. HB Nursing Note:
== END 2023-11-07 23:16 | disposition home or self-care (01) ==
LOC: ER 22:50 → RED 23:16
PROVIDERS: Emergency Provider Nurse Practitioner Family; PCP Nurse Practitioner Family
DX: R42 Dizziness and giddiness (principal); E86.0 Dehydration; R07.89 Other chest pain
CPT/HCPCS: 80053; 81025; 87637; 93005; 96361; 96374; 99285; 71046; 81003; 81015; 83735; 84443; 84484; 85025; 93010; 99284; J1885

== ENCOUNTER 2024-01-09 01:26 | Emergency (ER) | payer MEDICAID, SELFPAY ==
[2024-01-09] VITALS (14 sets, daily range): BP systolic 84–121; BP diastolic 38–63; PULSE 65–96; RESP 16–18; TEMP 36.6; O2SAT 97–100
--- NOTE | 2024-01-09 01:30 | ED.GENADUL_ITS ---
Discharge Plan Disposition Patient Disposition: Home Condition: Good Discharge Details Clinical Impression: Anxiety attack, Nausea and vomiting Primary Care Provider: Mariela Lawson ED Provider: Sammy Roe [place] Meds and New Rx's Prescriptions: Continued Nexplanon 68 mg implant 1 implant subdermal ONCE Rx Instructions: as a single dose albuterol sulfate [ProAir HFA] 90 mcg/actuation HFA aerosol inhaler 2 puff Inhalation Q4H PRN Qty: 8.5 0RF dextroamphetamine-amphetamine [Adderall] 12.5 mg tablet 15 mg PO DAILY MDD 12.5 mg Rx Instructions: take one tablet in the afternoon daily Discharge Instructions Instructions: Anxiety, Adult ED, Nausea and Vomiting, Adult ED Additional Instructions: You appear to have had an anxiety attack which subsequently led to nausea and vomiting. You were given prochlorperazine to help with nausea and vomiting as well as anxiety. You are observed with improvement. Please follow-up with primary care. Return to ED for any persistent vomiting, syncope, shortness of breath, neurologic change, other concerns. Referrals: Mariela Lawson [Primary Care Provider] - [facility] General Mode of arrival: EMS . Date/Time Provider Initiated Documentation: 01/09/24 01:30 . Limitations to Documentation: no limitations . Information obtained by: patient, EMS and RN notes reviewed . HPI Narrative: Patient presents to ED by ambulance after developing anxiety, nausea and vomiting, shaking all over. Patient reports that she was hanging out with friends. She denies any alcohol or drug use. Became anxious thinking about her aunt being in the same building as her. Subsequently began having racing thoughts. Developed anxiety, nausea and vomiting, shortness of breath and shaking. EMS reports that boyfriend told him they thought she was having a seizure. Patient never had a loss of consciousness. Shaking stopped after he dumped cold water on her. She denies any thoughts of suicide. She can continues to have nausea. Related Data Home Medications ?Medication ?Instructions ?Recorded ?Confirmed albuterol sulfate 90 mcg/actuation 2 puff inhalation Q4H PRN #8.5 05/11/18 01/09/24 aerosol inhaler (ProAir HFA) grams etonogestrel 68 mg subdermal 1 implant subdermal ONCE 05/10/20 01/09/24 implant (Nexplanon) dextroamphetamine-amphetamine 12.5 15 mg PO DAILY 11/01/23 01/09/24 mg tablet (Adderall) Previous Rx's ?Medication ?Instructions ?Recorded albuterol sulfate 90 mcg/actuation 2 puff inhalation Q4H PRN #8.5 05/11/18 aerosol inhaler (ProAir HFA) grams Allergies Allergy/AdvReac Type Severity Reaction Status Date / Time Penicillins Allergy Intermediate RASH Verified 01/09/24 01:29 amoxicillin Allergy Other (See Verified 01/09/24 01:29 Comment) General Stated Complaint: Anxiety CHUY: 4 Review of Systems Narrative: Per HPI Exam Narrative Exam Narrative: Const: WDWN female in NAD. VS per triage. HEENT: NC/AT. Normal facial exam. Neck: Supple. Trachea midline. Lungs: Normal respiratory effort. Lungs are clear. Cor: RRR without murmur. Good radial pulses. GI: Soft/ND/NT. Neuro: A+O x 3. Normal speech, mentation. Cranial nerves II - XII grossly intact. No gross motor or sensory deficit. Ext: No C/C/E. Course Vital Signs Vital signs: Vital Signs Temperature 97.8 F 01/09/24 01:23 Pulse 80 01/09/24 01:23 Respiratory Rate 18 01/09/24 01:23 Blood Pressure 118/50 L 01/09/24 01:23 Pulse Oximetry 100 01/09/24 01:23 Temperature 97.8 F 01/09/24 01:23 Temperature Source Temporal Artery Scan 01/09/24 01:23 Pulse 80 01/09/24 01:23 Respiratory Rate 18 01/09/24 01:23 Respiratory Effort Normal, Non-Labored 01/09/24 01:29 Blood Pressure 118/50 L 01/09/24 01:23 Blood Pressure Position Sitting 01/09/24 01:23 Pulse Oximetry 100 01/09/24 01:23 Pain Level 0 01/09/24 01:23 Medical Decision Making Patient presenting to ED with what sounds like an anxiety attack with hyperventilation. Vital signs are normal. Exam is unremarkable. Still complaining of nausea. Will give oral prochlorperazine and reevaluate. 03:30 - Patient is improved after prochlorperazine. She had gotten 5 mg orally, had small amount of emesis maybe 15 to 20 minutes later. Received a second dose of 5 mg since it was unclear whether the first dose stayed down or not. She has subsequently calm down. She is much more relaxed. She is tolerating p.o. at this point. Will discharge home to follow-up with primary care. Return precautions provided. 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 Contraception (Acute 09/22/23) Nexplanon Medical History Asthma Allergy to penicillin ADHD (attention deficit hyperactivity disorder) Insomnia Surgical History lump removal, behind right ear Had surgery at [facility] [place] Removal of foreign body ROCK REMOVED FROM EAR Family History Mother Diabetes Essential hypertension Conductive hearing loss, childhood onset Hyperlipidemia Mental disorder BIPOLAR, depression, anxiety Neoplasm ADHD (attention deficit hyperactivity disorder) Asthma Father Essential hypertension Hyperlipidemia Sister Substance abuse alcohol abuse Other Substance abuse grandparent - alcohol Hyperlipidemia grandparent Neoplasm grandparent Asthma grandparent Social History Smoking/Tobacco Use Status: Never Smoking risk assessment performed?: Yes Alcohol Intake: never Drug use: Rarely Substance use type: marijuana Details: Hx of hyperemesis from cannabinoids. Pets and animals: Yes Pets and animals: cat(s), bird(s) and other Details: rabbit Do you feel safe at home: Yes Do you feel safe in your relationship?: Yes Additional Social history: sister Felicity Mitchell, 2 yrs younger History History 0 Para Hx # Term Pregnancies Multiple births Hx # Pregnancies Ectopic pregnancies AB induced Hx Number of Living Children AB spontaneous
[2024-01-09] MEDS: Prochlorperazine 5 MG TAB PO ×2 (01:39→02:25)
== END 2024-01-09 03:34 | disposition home or self-care (01) ==
PROVIDERS: Emergency Provider Emergency Medicine; PCP Nurse Practitioner Family
DX: F41.9 Anxiety disorder, unspecified (principal); R11.2 Nausea with vomiting, unspecified
CPT/HCPCS: 99283; 99284

== ENCOUNTER 2024-01-16 02:24 | Emergency (ER) | payer MEDICAID, SELFPAY ==
[2024-01-16 02:22] VITALS: BP 140/77; PULSE 82; RESP 18; TEMP 36.7; O2SAT 98
--- NOTE | 2024-01-16 02:41 | W.ED.GENAD ---
Discharge Plan Disposition Patient Disposition: Home Condition: Good Discharge Details Chief Complaint: Seizure Clinical Impression: Psychogenic nonepileptic seizure Primary Care Provider: Mariela Lawson ED Provider: aB Powers Home Meds and New Rx's Prescriptions: No Action Nexplanon 68 mg implant 1 implant subdermal ONCE Rx Instructions: as a single dose albuterol sulfate [ProAir HFA] 90 mcg/actuation HFA aerosol inhaler 2 puff Inhalation Q4H PRN Qty: 8.5 0RF dextroamphetamine-amphetamine [Adderall] 12.5 mg tablet 15 mg PO DAILY MDD 12.5 mg Rx Instructions: take one tablet in the afternoon daily Discharge Instructions Instructions: Seizures, Adult ED Additional Instructions: At this time your exam is reassuring and your history and symptoms appear to be consistent with a nonepileptiform seizure. You should not drive, operate machinery, climb heights (such as a ladder), swim, or bathe alone or do anything else which could be dangerous if you would have another seizure. Please abide by this for the next 6 months or until cleared by a physician. Please focus on regular good sleep cycles, and staying well-hydrated by drinking 10 to 12 cups of water per day. If you notice any worsening of your symptoms, or any new symptoms such as vomiting, diarrhea, fever, chills, shortness of breath, chest pain, numbness, weakness, or fainting , please return immediately to the emergency department for reevaluation. Please follow up with your primary care provider as soon as possible for reassessment and reevaluation. As always, it was a pleasure participating in your medical care today. Referrals: Mariela Lawson [Primary Care Provider] - HPI HPI Narrative: 18-year-old female with a past medical history of ADHD, asthma, depression, biliary colic, control use with an Implanon, presents today for evaluation of seizure-like activity. Patient states that she was with her boyfriend, when she felt very hot and uncomfortable. She then had a brief episode for a minute or so where she had shaking-like movements. She recalls the entire event. EMS arrived and they were able to push down on her great toe which immediately stopped the seizure-like activity, the patient had normal electrical functionality immediately after the cessation of the seizure, and had no postictal phase. Blood glucose was normal. Patient had a similar episode of this 6 days ago, and the seizure like activity at that time was stopped with water being thrown on her. Patient denies any other complaints at this time. She did not micturate or defecate on herself. She does state that she might have bit the very tip of her tongue. She denies any drug use. No other complaints at this time. No other modifying factors. Related Data Home Medications ?Medication ?Instructions ?Recorded ?Confirmed albuterol sulfate 90 mcg/actuation 2 puff inhalation Q4H PRN #8.5 05/11/18 01/16/24 aerosol inhaler (ProAir HFA) grams etonogestrel 68 mg subdermal 1 implant subdermal ONCE 05/10/20 01/16/24 implant (Nexplanon) dextroamphetamine-amphetamine 12.5 15 mg PO DAILY 11/01/23 01/16/24 mg tablet (Adderall) Previous Rx's ?Medication ?Instructions ?Recorded albuterol sulfate 90 mcg/actuation 2 puff inhalation Q4H PRN #8.5 05/11/18 aerosol inhaler (ProAir HFA) grams Allergies Allergy/AdvReac Type Severity Reaction Status Date / Time Penicillins Allergy Intermediate RASH Verified 01/16/24 02:24 amoxicillin Allergy Unknown Verified 01/16/24 02:24 General Stated Complaint: Seizure CHUY: 3 Review of Systems All systems reviewed & are unremarkable except as noted in HPI and below Exam Narrative Exam Narrative: 1.Const: Well-nourished, Well-developed, appearing stated age 2.Eyes: PERRL, no conjunctival injection, and symmetrical lids. 3.ENT: Atraumatic external nose and ears. dry MM. Neck: Symmetric, trachea midline, No thyromegaly. Patient demonstrates good movement of cervical neck. There is no nuchal rigidity, no nuchal tenderness. Patient is able to flex the neck without any difficulty or significant pain. Negative Kernig's and Brudzinski sign. 4.CVS: +S1/S2, No murmurs or gallops. Peripheral pulses 2+ and equal in all extremities. Brisk capillary refill in all extremities. 5.RESP: Unlabored respiratory effort. Clear to auscultation bilaterally. No wheezes rales or rhonchi 6.GI: Soft, Nontender/Nondistended, No hepatosplenomegaly. No guarding or rebound. 7.MSK: Normocephalic/Atraumatic, Extremities w/o deformity or ttp No cyanosis or clubbing, Normal movement of all extremities 8.Skin: Warm, Dry. No rashes or lesions. 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 Sensation grossly intact, no focal neurologic deficits. All 6 cardinal planes of vision are fully intact. No evidence of rotatory or vertical nystagmus. The patient demonstrated a normal qrfslm-yzxb-ldbidq, good dexterity. There was no evidence of dysdiadochokinesia. Patient was able to ambulate without difficulty. There was no wide-based gait. Romberg testing was normal. Xlxf-nr-deva testing was normal. Sensation was intact bilaterally as well as muscle strength bilaterally for all extremities. Patient was able to verbalize butter cup with no slurring, or miss pronunciation. 10.Psych: (AAO) x3. Appropriate mood and affect Course Vital Signs Vital signs: Vital Signs Temperature 36.7 C 01/16/24 02:22 Pulse 82 01/16/24 02:22 Respiratory Rate 18 01/16/24 02:22 Blood Pressure 140/77 01/16/24 02:22 Pulse Oximetry 98 01/16/24 02:22 Temperature 36.7 C 01/16/24 02:22 Pulse 82 01/16/24 02:22 Respiratory Rate 18 01/16/24 02:22 Respiratory Effort Normal 01/16/24 02:26 Respiratory Depth Normal 01/16/24 02:26 Respiratory Pattern Normal 01/16/24 02:26 Blood Pressure 140/77 01/16/24 02:22 Blood Pressure Position Sitting 01/16/24 02:22 Pulse Oximetry 98 01/16/24 02:22 Oxygen Delivery Method Room Air 01/16/24 02:22 Oxygen Flow Rate 0 01/16/24 02:22 Medical Decision Making 18-year-old female with a past medical history of ADHD, asthma, depression, biliary colic, control use with an Implanon, presents today for evaluation of seizure-like activity. Patient states that she was with her boyfriend, when she felt very hot and uncomfortable. She then had a brief episode for a minute or so where she had shaking-like movements. She recalls the entire event. EMS arrived and they were able to push down on her great toe which immediately stopped the seizure-like activity, the patient had normal electrical functionality immediately after the cessation of the seizure, and had no postictal phase. Blood glucose was normal. Patient had a similar episode of this 6 days ago, and the seizure like activity at that time was stopped with water being thrown on her. Patient denies any other complaints at this time. She did not micturate or defecate on herself. She does state that she might have bit the very tip of her tongue. She denies any drug use. No other complaints at this time. No other modifying factors. Exam demonstrates a very reassuring exam with a normal neurologic assessment, no nuchal rigidity or meningismus. She did have mild dry mucous membranes. No other concerning abnormalities. Blood glucose normal. Normal reflexes, normal sensation. Symptoms and history appeared to be consistent with a nonepileptiform seizure. However out of an abundance of precaution we will recommend seizure precautions and outpatient follow-up with her PCP for further discussion of potential nonemergent EEG or neurology evaluation. At this time though symptoms appear notably inconsistent with a epileptiform seizure, and so there is not an indication for emergent admission or EEG or antiepileptics. Patient is otherwise stable. Recommend continued hydration at home and behavioral modifications. Discussed red flags for which to return. I have extensively reviewed the treatment plan and discharge instructions with the patient and their family. I have addressed all patient concerns at this time. The patient and family was made aware of what symptoms to monitor for that would warrant a return to the emergency department. Discussed the plan with the patient and family, they demonstrate verbal understanding and agreement with our assessment and plan at this time. The documentation in this chart was dictated using [employer] dictation software. Please excuse any dictation errors. 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/ low IQ Contraception (Acute 09/22/23) Nexplanon Medical History Asthma Allergy to penicillin ADHD (attention deficit hyperactivity disorder) Insomnia Surgical History lump removal, behind right ear Had [place] [facility] [place] Removal of foreign body ROCK REMOVED FROM EAR Family History Mother Diabetes Essential hypertension Conductive hearing loss, childhood onset Hyperlipidemia Mental disorder BIPOLAR, depression, anxiety Neoplasm ADHD (attention deficit hyperactivity disorder) Asthma Father Essential hypertension Hyperlipidemia Sister Substance abuse alcohol abuse Other Substance abuse grandparent - alcohol Hyperlipidemia grandparent Neoplasm grandparent Asthma grandparent Social History Smoking/Tobacco Use Status: Never Smoking risk assessment performed?: Yes Alcohol Intake: never Drug use: Rarely Substance use type: marijuana Details: Hx of hyperemesis from cannabinoids. Pets and animals: Yes Pets and animals: cat(s), bird(s) and other Details: rabbit Do you feel safe at home: Yes Do you feel safe in your relationship?: Yes Additional Social history: sister Felicity Mitchell, 2 yrs younger History History 0 Para Hx # Term Pregnancies Multiple births Hx # Pregnancies Ectopic pregnancies AB induced Hx Number of Living Children AB spontaneous
== END 2024-01-16 02:50 | disposition home or self-care (01) ==
LOC: ER 02:49
PROVIDERS: Emergency Provider Student in an Organized Health Care Education/Training Program; PCP Nurse Practitioner Family
DX: F44.5 Conversion disorder with seizures or convulsions (principal)
CPT/HCPCS: 99283

== ENCOUNTER 2024-01-27 18:43 | Emergency (ER) | payer MEDICAID, SELFPAY ==
[2024-01-27] VITALS (15 sets, daily range): BP systolic 105–123; BP diastolic 49–75; PULSE 70–103; RESP 16–20; TEMP 36.2; O2SAT 97–100
--- NOTE | 2024-01-27 18:45 | RT.EKG_ITS ---
APPROVED REPORT Exam: Resting ECG Reason for Exam: chest pain. Patient Location: E HR:87 bpm ECG Measurements Heart Rate 87 AXIS DC 137 P 34 QRSd 83 QRS 17 QT 359 T 48 QTc 433 Conclusion Sinus rhythm 87 no stemi
[2024-01-27] MEDS: Acetaminophen 500 MG TAB 1000 MG PO (19:42)
[2024-01-27] MEDS: Ibuprofen 600 MG TAB PO (19:42)
--- NOTE | 2024-01-27 20:47 | DI.RAD_ITS ---
Exam(s) XR CHEST 2V PA LATERAL EXAM: XR CHEST 2V PA LATERAL CLINICAL HISTORY: CHEST PAIN. TECHNIQUE: 2D digital imaging was performed. COMPARISON: CR,XR XR CHEST 2V PA LATERAL from 11/07/2023 FINDINGS: 2 views: Heart size is normal. The mediastinum is not widened. Lungs are clear. No infiltrates nor pleural effusions. IMPRESSION: No acute pulmonary findings. DATA REPOSITORY: RADIATION DOSE DELIVERED:
--- NOTE | 2024-01-27 21:08 | DI.VRAD_ITS ---
PROCEDURE INFORMATION: Exam: XR Chest Exam date and time: 01/27/2024 7:50 PM Age: 18 years old Clinical indication: Chest pressure; Patient HX: Chest pain TECHNIQUE: Imaging protocol: Radiologic exam of the chest. Views: 2 views. COMPARISON: CR XR CHEST 2V PA LATERAL 11/07/2023 9:39 PM FINDINGS: Lungs: Unremarkable. No consolidation. Pleural spaces: Unremarkable. No pleural effusion. No pneumothorax. Heart/Mediastinum: Unremarkable. No cardiomegaly. Bones/joints: Unremarkable. IMPRESSION: No acute findings. Dictated and Authenticated by: Marlen Moss MD. Ordering:[facility] Kobe Guerra MD
--- NOTE | 2024-01-27 21:43 | ED.GENADUL_ITS ---
Discharge Plan Disposition Patient Disposition: Home Condition: Stable Discharge Details Clinical Impression: Chest pain Primary Care Provider: Mariela Lawson ED Provider: Mirtha Bullock Home Meds and New Rx's Prescriptions: No Action Nexplanon 68 mg implant 1 implant subdermal ONCE Rx Instructions: as a single dose albuterol sulfate [ProAir HFA] 90 mcg/actuation HFA aerosol inhaler 2 puff Inhalation Q4H PRN Qty: 8.5 0RF dextroamphetamine-amphetamine [Adderall] 12.5 mg tablet 15 mg PO DAILY MDD 12.5 mg Rx Instructions: take one tablet in the afternoon daily Discharge Instructions Additional Instructions: EKG AND CHEST XRAY LOOK NORMAL CONTINUE MOTRIN AND TYLENOL FOR PAIN FOLLOW UP WITH YOUR PCP NEEDED HPI General Date/Time Provider Initiated Documentation: 01/27/24 19:29 . Limitations to Documentation: no limitations . Information obtained by: patient . HPI Narrative: 18-year-old female without significant past medical history presents for evaluation of chest pain. She states that she was rubbing along her clavicles and felt like there was swelling over the right clavicle that was not present on the left side. She states that then this went down through my breast into my belly and in my back. When asked what this might be whether it is swelling or pain, she says I do not know. She has not been having any shortness of breath. She states that she has never felt like this before. Denies any sick symptoms or cough. She denies any history of IV drug use. Related Data Home Medications ?Medication ?Instructions ?Recorded ?Confirmed albuterol sulfate 90 mcg/actuation 2 puff inhalation Q4H PRN #8.5 05/11/18 01/27/24 aerosol inhaler (ProAir HFA) grams etonogestrel 68 mg subdermal 1 implant subdermal ONCE 05/10/20 01/27/24 implant (Nexplanon) dextroamphetamine-amphetamine 12.5 15 mg PO DAILY 11/01/23 01/27/24 mg tablet (Adderall) Previous Rx's ?Medication ?Instructions ?Recorded albuterol sulfate 90 mcg/actuation 2 puff inhalation Q4H PRN #8.5 05/11/18 aerosol inhaler (ProAir HFA) grams Allergies Allergy/AdvReac Type Severity Reaction Status Date / Time Penicillins Allergy Intermediate RASH Verified 01/27/24 18:55 amoxicillin Allergy Unknown Verified 01/27/24 18:55 General Stated Complaint: Chest/Rib CHUY: 3 Exam Narrative Exam Narrative: Review of Systems: All systems reviewed & are unremarkable except as noted in HPI and below Well-developed, no acute distress NCAT No clavicle abnormality or other chest wall abnormality or tenderness appreciated No murmur RRR Unlabored respiratory effort clear bilaterally Course Vital Signs Vital signs: Vital Signs Temperature 36.2 C L 01/27/24 18:49 Pulse 103 H 01/27/24 18:49 Respiratory Rate 16 01/27/24 18:49 Blood Pressure 123/75 01/27/24 18:49 Pulse Oximetry 98 01/27/24 18:49 Temperature 36.2 C L 01/27/24 18:49 Temperature Source Temporal Artery Scan 01/27/24 18:49 Pulse 70 01/27/24 20:31 Respiratory Rate 20 01/27/24 20:07 Respiratory Effort Normal, Non-Labored 01/27/24 19:43 Respiratory Depth Normal 01/27/24 19:43 Respiratory Pattern Normal 01/27/24 19:43 Blood Pressure 105/66 01/27/24 20:31 Blood Pressure Mean 74 01/27/24 20:31 Pulse Oximetry 99 01/27/24 20:31 Oxygen Delivery Method Room Air 01/27/24 20:07 Oxygen Flow Rate 0 01/27/24 20:07 Pain Level 9 01/27/24 20:07 Comment pain location- back 01/27/24 20:07 Medical Decision Making Emergent evaluation of chest pain. EKG reviewed and independently interpreted. Sinus 87 normal axis no dysrhythmia, no STEMI. The patient has no risk factors for ACS and I do not suspect that she is having a cardiac etiology of her chest pain. The chest x-ray was obtained and independently interpreted. No focal consolidation, normal heart size, no pulmonary edema or pleural effusion. Recommend Motrin and Tylenol as needed for any pain or discomfort. Follow-up with PCP if symptoms persist. At this time no further emergent workup indicated. Discharged in good condition. 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/ low IQ Contraception (Acute 09/22/23) Nexplanon Medical History Asthma Allergy to penicillin ADHD (attention deficit hyperactivity disorder) Insomnia Surgical History lump removal, behind right ear [place] [facility] [place] body ROCK REMOVED FROM EAR Family History Mother Diabetes Essential hypertension Conductive hearing loss, childhood onset Hyperlipidemia Mental disorder BIPOLAR, depression, anxiety Neoplasm ADHD (attention deficit hyperactivity disorder) Asthma Father Essential hypertension Hyperlipidemia Sister Substance abuse alcohol abuse Other Substance abuse grandparent - alcohol Hyperlipidemia grandparent Neoplasm grandparent Asthma grandparent Social History Smoking/Tobacco Use Status: Never Smoking risk assessment performed?: Yes Alcohol Intake: never Drug use: Rarely Substance use type: marijuana Details: Hx of hyperemesis from cannabinoids. Housing: apartment Pets and animals: Yes Pets and animals: cat(s), bird(s) and other Details: rabbit Do you feel safe at home: Yes Do you feel safe in your relationship?: Yes Additional Social history: sister Felicity Mitchell, 2 yrs younger History History 0 Para Hx # Term Pregnancies Multiple births Hx # Pregnancies Ectopic pregnancies AB induced Hx Number of Living Children AB spontaneous
== END 2024-01-27 20:40 | disposition home or self-care (01) ==
PROVIDERS: Emergency Provider Emergency Medicine; PCP Nurse Practitioner Family
DX: R07.9 Chest pain, unspecified (principal); M54.6 Pain in thoracic spine
CPT/HCPCS: 93005; 99284; 71046; 93010; 99283

== ENCOUNTER 2024-02-17 02:58 | Outpatient (CLI) | payer MEDICAID, SELFPAY ==
--- NOTE | 2024-02-17 | DI.US_ITS ---
Exam(s) US BREAST RT COMPLETE EXAM: US BREAST RT COMPLETE CLINICAL HISTORY: RT BREAST PAIN,N64.4 TECHNIQUE: Ultrasound right breast performed using standard protocol. COMPARISON: No exams were available for comparison FINDINGS: No solid or cystic masses, hypoechoic foci, areas of abnormal shadowing, or areas of skin thickening. IMPRESSION: No sonographically suspicious finding. BI-RADS Category 1 - Negative DATA REPOSITORY:
== END 2024-02-17 03:18 ==
LOC: DI 02:58
PROVIDERS: PCP Nurse Practitioner Family; Visit Provider Nurse Practitioner Family
DX: N64.4 Mastodynia (principal)
CPT/HCPCS: 76642

== ENCOUNTER 2024-04-14 16:44 | Emergency (ER) | payer MEDICAID, SELFPAY ==
[2024-04-14] VITALS (32 sets, daily range): BP systolic 121–139; BP diastolic 50–99; PULSE 79–138; RESP 12–33; TEMP 36.9; O2SAT 97–100
--- NOTE | 2024-04-14 17:15 | DI.CT_ITS ---
Exam(s) CT HEAD CERVICAL SPINE WO EXAM: CT HEAD CERVICAL SPINE WO CLINICAL HISTORY: fall, hs, ? LOC, neck pain. TECHNIQUE: Imaging Protocol: Axial computed tomography images with coronal and sagittal reformatted images were created and reviewed COMPARISON: CT CT HEAD CERVICAL SPINE WO from 10/26/2020 FINDINGS: BRAIN: There are no skull fractures. However, there is mucosal thickening and fluid in both maxillary sinus es consistent with acute sinusitis. There is some opacification of anterior left ethmoidal air cells and there is mucosal thickening in the left frontal sinus. Right frontal sinus is clear as are righ t-sided ethmoidal air cells and sphenoid sinuses bilaterally. There is no fluid in the mastoid air c ells. There is no evidence of intracranial hemorrhage, mass effect, or shift of midline structures. There are no extra-axial fluid collections. The ventricles are not enlarged or shifted and there is no blo od within the ventricular system nor within the basal cisterns. CERVICAL SPINE: There is no evidence of fracture nor listhesis. No significant prevertebral soft tissue swelling. No disc space narrowing. No facet arthropathy. There is no significant facet joint malalignment. No significant osseous lesions evident. IMPRESSION: No acute intracranial findings on this noninfused CT scan of the brain.However, there are findings co nsistent with acute bilateral maxillary sinusitis. There is also some mucosal thickening in the left frontal sinus. No evidence of cervical spine fracture, malalignment, nor acute compromise of the cervical spinal can al. Called by myself to ER physician 04/14/2024 at 7:20 p.m. RADIATION DOSE DELIVERED: 1,141.12mGy.cm Total DLP DATA REPOSITORY: All CT scans at this facility are submitted to the National Radiology Data Registry (NRDR) Dose Index Registry (DIR) with the [employer] ([employer]). RADIATION OPTIMIZATION: All CT scans at this facility use at least one of these dose optimization te chniques: automated exposure control; mA and/or kV adjustment per patient size (includes targeted exa ms where dose is matched to clinical indication); or iterative reconstruction.
--- NOTE | 2024-04-14 17:15 | RT.EKG_ITS ---
APPROVED REPORT Exam: Resting ECG Reason for Exam: convulsions Patient Location: E HR:109 bpm ECG Measurements Heart Rate 109 AXIS WY 170 P 38 QRSd 83 QRS 20 QT 328 T 31 QTc 441 Conclusion Sinus tachycardia...rate> [address] segment or T wave abnormalities to suggest occlusive [place]
[2024-04-14 17:46] LABS: Abs Immature Grans 0.04 10^3/uL (0.0-0.06); Absolute Lymphocyte Count 2.16 10^3/uL (1.2-3.4); Basophils % 0.4 %; Eosinophils % 0.1 %; HCT 43.4 % (36.0-46.0); HGB 14.8 g/dL (11.2-15.7); Immature Grans % 0.3 %; Lymphocytes % 15.6 %; MCH 29.5 pg (27.0-33.0); MCHC 34.1 % (32.0-36.0); MCV 87 fL (80-95); MPV 10.3 fL (8.0-11.0); Monocytes % 4.8 %; Neutrophils % 78.8 %; Platelet Count 249 10^3/uL (130-400); RBC 5.01 10^6/uL (3.93-5.22); RDW 12.7 % (11.7-14.6); RDW-SD 39.9 fL; WBC 13.84 10^3/uL (4.4-10.8)
[2024-04-14 17:51] LABS: Absolute Basophil Count 0.06 10^3/uL (0.0-0.2); Absolute Eosinophil Count 0.01 10^3/uL (0.0-0.7); Absolute Monocyte Count 0.66 10^3/uL (0.1-0.8); Absolute Neutrophil Count 10.91 10^3/uL (1.2-6.7)
[2024-04-14 17:58] LABS: HCG Qual (Serum) Negative
[2024-04-14 18:05] LABS: ALT 24 U/L (14-59); AST 15 U/L (15-37); Albumin 4.4 g/dL (3.4-5.0); Alkaline Phosphatase 84 U/L (46-116); Anion Gap 9.1 mmol/L (3-11); BUN 11 mg/dL (7-18); Bilirubin, Total 0.29 mg/dL (0.2-1.0); CO2 28.9 mmol/L (21.0-32.0); CREATININE 0.9 mg/dL (0.55-1.02); Calcium 9.7 mg/dL (8.5-10.1); Chloride 105 mmol/L (98-107); Estimated GFR 93.86 (mL/min/1.73m2); Glucose 97 mg/dL (74-106); Potassium 3.8 mmol/L (3.5-5.1); Sodium 143 mmol/L (136-145); TSH (W/Ref FT4) 2.79 uIU/mL (0.36-3.74); Total Protein 8.1 g/dL (6.4-8.2)
--- NOTE | 2024-04-14 18:24 | W.ED.GENAD ---
Discharge Plan Disposition Patient Disposition: Home Condition: Good Discharge Details Clinical Impression: Convulsion Primary Care Provider: Mariela Lawson ED Provider: Melba Daniel Home Meds and New Rx's Prescriptions: Continued Nexplanon 68 mg implant 1 implant subdermal ONCE Rx Instructions: as a single dose albuterol sulfate [ProAir HFA] 90 mcg/actuation HFA aerosol inhaler 2 puff Inhalation Q4H PRN Qty: 8.5 0RF dextroamphetamine-amphetamine [Adderall] 12.5 mg tablet 15 mg PO DAILY MDD 12.5 mg Rx Instructions: take one tablet in the afternoon daily Discharge Instructions Instructions: Seizures, Adult ED Additional Instructions: Do not drive, swim, or engage in activity where losing consciousness could harm yourself or others. You will need to followup with neurology; they will call to schedule an appointment. If you do not hear from them, please give them a call. Return to the emergency department for new or worsening symptoms, or if your episodes change in any way. Referrals: [facility] [Provider Group] HPI General Mode of arrival: EMS. Date/Time Provider Initiated Documentation: 04/14/24 16:56. Limitations to Documentation: no limitations. Information obtained by: patient, family, EMS and old records reviewed. HPI Narrative: 18yo F presenting with seizure like activity increasing in frequency over the past week. Today felt like she was about to have a seizure and so called EMS. After calling EMS she states that she began to have whole body tremors, went 'stiff', and fell backwards striking her head on the floor. Thinks she may have lost consciousness at that point. On EMS arrival had another episode of whole body convulsions for about 5 minutes. Per EMS, not post-ictal. No chest pain or shortness of breath at any point. Did not feel like she was going to pass out. Reports that her whole body 'feels strange'. No focal weakness, numbness, vertigo, or vision changes. States that she has seizures frequently but has beening happening more often this week, including one yesterday. Has never seen neurology or had an EEG, not on anti-epileptic medication, states that she was diagnosed with seizures by a nurse in the hospital. 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 On record review, also seen in this ED on 01/16/24 with similar presentation and diagnosis. She has a PCP appointment to followup on her episodes scheduled for later this month, could not get in sooner Reports FAUSTIN and neck pain currently, otherwise denies pain or injury. Otherwise in her usual state of health with no fevers, chills, rash, nausea, vomiting, vertigo, vision changes, or other concerns. Related Data Home Medications ?Medication ?Instructions ?Recorded ?Confirmed albuterol sulfate 90 mcg/actuation 2 puff inhalation Q4H PRN #8.5 05/11/18 04/14/24 aerosol inhaler (ProAir HFA) grams etonogestrel 68 mg subdermal 1 implant subdermal ONCE 05/10/20 04/14/24 implant (Nexplanon) dextroamphetamine-amphetamine 12.5 15 mg PO DAILY 11/01/23 04/14/24 mg tablet (Adderall) Previous Rx's ?Medication ?Instructions ?Recorded albuterol sulfate 90 mcg/actuation 2 puff inhalation Q4H PRN #8.5 05/11/18 aerosol inhaler (ProAir HFA) grams Allergies Allergy/AdvReac Type Severity Reaction Status Date / Time Penicillins Allergy Intermediate RASH Verified 04/14/24 16:51 amoxicillin Allergy Unknown Verified 04/14/24 16:51 General Stated Complaint: Seizure CHUY: 3 Review of Systems Narrative: see HPI Exam Narrative Exam Narrative: General: Alert, well appearing, well nourished, in no acute distress. C-collar in place Head: Normocephalic, atraumatic Neck: Trachea midline, ?Neck supple. ENT: ?MMM.? No oropharygeal lesions or exudate. Cardiac: ?RRR, no murmurs appreciated Resp: No respiratory distress. CTAB. Abd: ?Soft, non-distended, nontender : ?No suprapubic tenderness. No CVA tenderness. Extremities: ?No deformities.? No peripheral edema. Neuro: ? GCS 15.? PERRL.? EOMI.? Fluent speech, no dysarthria. Motor- 5/5 strength symmetric bilateral upper and lower extremities including shoulder abductors/adductors, elbow flexors/extensors, wrist flexors/extensors, finger abductors/adductors, hipflexors/extensors, knee flexors/extensors, ankle dorsiflexors and planter flexors. Sensation- ?Pt states cannot feel light touch anywhere (V1-V3, UE, LE, trunk); reacts to painful stimuli Coordination- No dysmetria on finger to nose Gait/station: ?Normal stance.? No truncal ataxia. Steady gait with equal normal steps CRANIAL NERVES: II: Pupils equal and reactive, III, IV, : EOM intact, no gaze preference or deviation, no nystagmus. V: ?Pt states cannot feel light touch anywhere (V1-V3, UE, LE, trunk); VII: no asymmetry, no nasolabial fold flattening VIII: normal hearing to speech IX, X: normal palatal elevation, no uvular deviation XI: Deferred XII: midline tongue protrusion Course Vital Signs Vital signs: Vital Signs Temperature 36.9 C 04/14/24 16:45 Pulse 126 H 04/14/24 16:45 Respiratory Rate 18 04/14/24 16:45 Blood Pressure 139/99 H 04/14/24 16:45 Pulse Oximetry 98 04/14/24 16:45 Temperature 36.9 C 04/14/24 16:45 Pulse 126 H 04/14/24 16:45 Respiratory Rate 18 04/14/24 16:45 Respiratory Effort Normal 04/14/24 17:40 Respiratory Depth Normal 04/14/24 17:40 Respiratory Pattern Normal 04/14/24 17:40 Blood Pressure 139/99 H 04/14/24 16:45 Pulse Oximetry 98 04/14/24 16:45 Pain Level 10 04/14/24 16:45 Lab/Test Results Lab/Test Results: Laboratory Tests Range/Units 04/14/24 17:27 WBC (4.4-10.8) 10^3/uL 13.84 H RBC (3.93-5.22) 10^6/uL 5.01 Hgb (11.2-15.7) g/dL 14.8 Hct (36.0-46.0) % 43.4 MCV (80-95) fL 87 MCH (27.0-33.0) pg 29.5 MCHC (32.0-36.0) % 34.1 RDW (11.7-14.6) % 12.7 Plt Count (130-400) 10^3/uL 249 MPV (8.0-11.0) fL 10.3 Immature Gran % % 0.3 Neutrophils % % 78.8 Lymphocytes % % 15.6 Monocytes % % 4.8 Eosinophils % % 0.1 Basophils % % 0.4 Nucleated RBC % (0.0-0.3) % 0.0 Absolute Neutrophils (1.2-6.7) 10^3/uL 10.91 H Absolute Lymphocytes (1.2-3.4) 10^3/uL 2.16 Absolute Monocytes (0.1-0.8) 10^3/uL 0.66 Absolute Eosinophils (0.0-0.7) 10^3/uL 0.01 Absolute Basophils (0.0-0.2) 10^3/uL 0.06 Sodium (136-145) mmol/L 143 Potassium (3.5-5.1) mmol/L 3.8 Chloride (98-107) mmol/L 105 Carbon Dioxide (21.0-32.0) mmol/L 28.9 Anion Gap (3-11) mmol/L 9.1 BUN (7-18) mg/dL 11 Creatinine (0.55-1.02) mg/dL 0.9 Est GFR (CKD-EPI 2020) (mL/min/1.73m2) 93.86 Glucose (74-106) mg/dL 97 Calcium (8.5-10.1) mg/dL 9.7 Magnesium (1.8-2.4) mg/dL 2.0 Total Bilirubin (0.2-1.0) mg/dL 0.29 AST (15-37) U/L 15 ALT (14-59) U/L 24 Alkaline Phosphatase (46-116) U/L 84 Total Protein (6.4-8.2) g/dL 8.1 Albumin (3.4-5.0) g/dL 4.4 TSH (0.36-3.74) uIU/mL 2.79 Serum HCG, Qual Negative Medical Decision Making 18yo F presenting with seizure like activity increasing in frequency over the past week today with fall and head strike. Description of events consistent with PNES; not suggestive of epileptic seizure, convulsive syncope, or cardiac event. Tachycardiac on arrival, vital signs otherwise reassuring. EKG on arrival sinus tachycardia, appropriate intervals, no ST segment or T wave abnormaliteis to suggest occlusive [place]. Repeat HR improved without intervention. Subjectively diminished sensation to light touch throughout entire body, otherwise normal neurologic exam. Reporting neck pain. Low suspicion for epileptic seizure however given escalating symptoms and frequency of ED visits here and elsewhere will evaluate with head CT and labs and consult teleneurology for 2nd opinion. Labs reviewed as below, CBC wtih mild leukocytosis (nonspecific), CMP with no actionable abnormalities, TSH normal, negative, UA not infected. CT head independently reviewed, no intracranial mass or bleed on my view, radiology read below with sinusitis. CT c-spine independently reviewed, no displaced fracture on my view, radiology read below with no acute findings. C-collar removed, no midline tenderness and full pain free ROM with flexion, extension, and lateral rotation. 5/5 head turn and 5/5 shoulder shrug bilaterally. Discussed with Dr. 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 Given this, recommended outpatient neurology referral for EEG and further testing with no indication for hospitalization, medication, or further monitoring in the ED. Discharged home; discharge instructions and return precautions were reviewed with patient who verbalized understanding. All questions were answered and she is in full agreement with the plan. Imaging Data Radiologic Study: Imaging: CT Scan Radiologist's impression: IMPRESSION: No acute intracranial findings on this noninfused CT scan of the brain.However, there are findings consistent with acute bilateral maxillary sinusitis. There is also some mucosal thickening in the left frontal sinus. No evidence of cervical spine fracture, malalignment, nor acute compromise of the cervical spinal canal. Lab Data Lab results reviewed: Yes I reviewed the patient's lab results. Labs: Laboratory Tests Range/Units 04/14/24 17:27 WBC (4.4-10.8) 10^3/uL 13.84 H RBC (3.93-5.22) 10^6/uL 5.01 Hgb (11.2-15.7) g/dL 14.8 Hct (36.0-46.0) % 43.4 MCV (80-95) fL 87 MCH (27.0-33.0) pg 29.5 MCHC (32.0-36.0) % 34.1 RDW (11.7-14.6) % 12.7 Plt Count (130-400) 10^3/uL 249 MPV (8.0-11.0) fL 10.3 Immature Gran % % 0.3 Neutrophils % % 78.8 Lymphocytes % % 15.6 Monocytes % % 4.8 Eosinophils % % 0.1 Basophils % % 0.4 Nucleated RBC % (0.0-0.3) % 0.0 Absolute Neutrophils (1.2-6.7) 10^3/uL 10.91 H Absolute Lymphocytes (1.2-3.4) 10^3/uL 2.16 Absolute Monocytes (0.1-0.8) 10^3/uL 0.66 Absolute Eosinophils (0.0-0.7) 10^3/uL 0.01 Absolute Basophils (0.0-0.2) 10^3/uL 0.06 Sodium (136-145) mmol/L 143 Potassium (3.5-5.1) mmol/L 3.8 Chloride (98-107) mmol/L 105 Carbon Dioxide (21.0-32.0) mmol/L 28.9 Anion Gap (3-11) mmol/L 9.1 BUN (7-18) mg/dL 11 Creatinine (0.55-1.02) mg/dL 0.9 Est GFR (CKD-EPI 2020) (mL/min/1.73m2) 93.86 Glucose (74-106) mg/dL 97 Calcium (8.5-10.1) mg/dL 9.7 Magnesium (1.8-2.4) mg/dL 2.0 Total Bilirubin (0.2-1.0) mg/dL 0.29 AST (15-37) U/L 15 ALT (14-59) U/L 24 Alkaline Phosphatase (46-116) U/L 84 Total Protein (6.4-8.2) g/dL 8.1 Albumin (3.4-5.0) g/dL 4.4 TSH (0.36-3.74) uIU/mL 2.79 Serum HCG, Qual Negative Quality:SDOH Health Related Social Needs: Health related social needs problems related to housing/economic circumstances (Z59.89), problems finding work (Z56.9), feeling lonely/isolated (Z60.8) PFSH All Active Problems (Updated 04/14/24 @ 20:50 by Melba Daniel MD) Convulsion (Acute) Insomnia (Acute) Acne (Acute) Depression (Acute) Learning difficulty (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) per school tested w/ low IQ Contraception (Acute 09/22/23) Nexplanon Medical History Asthma Allergy to penicillin ADHD (attention deficit hyperactivity disorder) Insomnia Surgical History lump removal, behind right ear Had surgery at [facility] [place] Removal of foreign body ROCK REMOVED FROM EAR Family History Mother Diabetes Essential hypertension Conductive hearing loss, childhood onset Hyperlipidemia Mental disorder BIPOLAR, depression, anxiety Neoplasm ADHD (attention deficit hyperactivity disorder) Asthma Father Essential hypertension Hyperlipidemia Sister Substance abuse alcohol abuse Other Substance abuse grandparent - alcohol Hyperlipidemia grandparent Neoplasm grandparent Asthma grandparent Social History Smoking/Tobacco Use Status: Never Smoking risk assessment performed?: Yes Alcohol Intake: never Drug use: Rarely Substance use type: marijuana Details: Hx of hyperemesis from cannabinoids. Housing: apartment Pets and animals: Yes Pets and animals: cat(s), bird(s) and other Details: rabbit Do you feel safe at home: Yes Do you feel safe in your relationship?: Yes Additional Social history: sister Felicity Mitchell, 2 yrs younger History History 0 Para Hx # Term Pregnancies Multiple births Hx # Pregnancies Ectopic pregnancies AB induced Hx Number of Living Children AB spontaneous
[2024-04-14] MEDS: Acetaminophen 500 MG TAB 1000 MG PO (18:51)
[2024-04-14 20:52] LABS: Bilirubin Negative (Negative); Blood Negative (Negative); Clarity Clear (Clear); Glucose Negative (Negative); Ketones Trace mg/dL (Negative); Leukocyte Esterase Negative (Negative); Nitrite Negative (Negative); Urobilinogen 0.2 mg/dL (Up to 0.2); pH 7.5 (5-8)
[2024-04-14 20:58] LABS: Bacteria Negative HPF (Negative); C & S Indicated? No; Casts Negative LPF (Negative); Crystals Negative HPF (Negative); Epithelial Cells Negative HPF (Negative); Mucus Negative (Negative); RBC Negative HPF (0-2); WBC Negative HPF (0-5)
== END 2024-04-14 21:17 | disposition home or self-care (01) ==
PROVIDERS: Emergency Provider Student in an Organized Health Care Education/Training Program; PCP Nurse Practitioner Family
DX: R56.9 Unspecified convulsions (principal)
CPT/HCPCS: 80053; 93005; 99285; 70450; 72125; 81003; 81015; 83735; 84443; 84703; 85025; 93010; 99284

== ENCOUNTER 2024-04-27 02:42 | Outpatient (CLI) | payer MEDICAID, SELFPAY ==
--- NOTE | 2024-04-27 10:39 | PDOC.EEG ---
Neurology EEG EEG: [facility] Department of Neurology EEG REPORT Date of Recordin04/27/24 Interpreting Physician: Dr. Cherri Chavez PCP/Referring Provider: Mariela Lawson NP Reason for study: Joann is a 18 year-old with seizure like events. Current Medications: Home Medications ?Medication ?Instructions ?Recorded ?Confirmed ?Type albuterol sulfate 90 mcg/actuation 2 puff inhalation Q4H PRN #8.5 05/11/18 04/22/24 Rx aerosol inhaler (ProAir HFA) grams etonogestrel 68 mg subdermal 1 implant subdermal ONCE 05/10/20 04/22/24 History implant (Nexplanon) dextroamphetamine-amphetamine 12.5 15 mg PO DAILY 11/01/23 04/22/24 History mg tablet (Adderall) levetiracetam 500 mg tablet 500 mg PO Q12H #60 tabs 04/22/24 04/22/24 Rx METHODS: A 21 channel digitized electroencephalogram was performed in the [facility] Clinical Neurophysiology Laboratory. The 10/20 international system of electrode placement was used and bipolar and referential electrode montages were recorded. In addition to EEG the patient was monitored for EKG and lateral/vertical eye movements. Activation procedures of photic stimulation and hyperventilation were performed if applicable. Video was used during activation procedures and during events where applicable. The duration of the recording was 30 minutes. DESCRIPTION OF EEG: The patient was noted to be awake, drowsy, and asleep during the recording. During maximal wakefulness a 10-Hz posterior background rhythm was present which was well-modulated, symmetrical, reactive to eye opening, and of moderate voltage. With eye opening the background activity changed to a low voltage mixture of alpha, beta, and occasional theta range frequencies. Faster frequencies were present in the bilateral anterior head regions. There was a normal anterior-posterior voltage gradient. During drowsiness, there was attenuation of the posterior dominant background rhythm and vertex waves. Stage II sleep was present with symmetrical sleep spindles, K-complexes, and vertex waves. Activating Procedures: Photic stimulation was performed which produced a symmetrical posterior driving response at various flash frequencies. Hyperventilation was performed with moderate effort and produced no physiological slowing of the background. EKG: EKG revealed normal sinus rhythm. INTERPRETATION: This EEG is normal during the awake and sleep states as well as during photic stimulation and hyperventilation. PRIOR EEG: none CLINICAL CORRELATION: No focal regions of cerebral dysfunction or epileptiform activity was present. Epilepsy remains a clinical diagnosis and a normal EEG does not rule out epilepsy. Clinical correlation is advised. Cherri Chavez MD Date of service: 04/27/24
== END 2024-04-27 02:43 | disposition home or self-care (01) ==
LOC: RT 02:42
PROVIDERS: PCP Nurse Practitioner Family; Visit Provider Psychiatry & Neurology Neurology
DX: R40.4 Transient alteration of awareness (principal); R56.9 Unspecified convulsions
CPT/HCPCS: 95819

== ENCOUNTER 2024-04-29 10:17 | Outpatient (CLI) | payer MEDICAID, SELFPAY ==
--- NOTE | 2024-04-29 09:15 | DI.MRI_ITS ---
Exam(s) MR BRAIN WO EXAM: MR BRAIN WO CLINICAL HISTORY: new seizures,convulsion,r56.9 TECHNIQUE: Multiplanar multisequence MRI of the brain was performed. COMPARISON: No exams were available for comparison FINDINGS: CEREBRAL PARENCHYMA: There is no evidence of intracranial hemorrhage, mass effect, or shift of midline structures. There are no extra-axial fluid collections. Ventricles are not enlarged or shifted. No evidence of cerebe llar tonsillar ectopia. There is no significant focal signal abnormality in the cerebellar hemispheres nor within the vani, m idbrain, and thalami. No abnormal signal in the temporal lobes. No evidence of obvious mesial tempo ral sclerosis. There is no abnormal signal abnormality in the periventricular white matter. No evidence of demyelin ating disease. There is no significant focal signal abnormality evident on diffusion imaging to suggest acute ischem ic event. SWI reveals no evidence of microhemorrhages. PITUITARY GLAND: No mass nor parasellar abnormality. No obvious abnormality in the cavernous sinuses. FLOW VOIDS: The expected flow void are noted. No evidence of obvious aneurysm nor obvious vascular ma lformation. PARANASAL SINUSES: There is circumferential mucosal thickening in both maxillary sinuses evident, wit hout fluid levels. There is mucosal thickening also noted in both sphenoid sinuses as well as within the ethmoidal air cells and within the left frontal sinus, also without fluid level. No obvious mas toid effusions. ORBITS: No obvious findings. IMPRESSION: No significant intracranial findings on this noninfused MRI scan of the brain. There is paranasal sinus disease with circumferential mucosal thickening noted in both maxillary sinu ses, the sphenoid sinuses, ethmoidal air cells, and left frontal sinus. There no fluid levels within these paranasal sinuses. DATA REPOSITORY:
== END 2024-04-29 10:37 ==
LOC: DI 10:17
PROVIDERS: PCP Nurse Practitioner Family; Visit Provider Psychiatry & Neurology Neurology
DX: J32.0 Chronic maxillary sinusitis (principal)
CPT/HCPCS: 70551

== ENCOUNTER 2024-05-05 18:55 | Emergency (ER) | payer MEDICAID, SELFPAY ==
[2024-05-05] VITALS (13 sets, daily range): BP systolic 95–116; BP diastolic 49–73; PULSE 58–95; RESP 11–25; TEMP 37.2; O2SAT 94–100
[2024-05-05] MEDS: levETIRAcetam 1,000 MG in Normal Saline 100 ML 400 MG IVPB (19:26)
[2024-05-05 19:30] LABS: Abs Immature Grans 0.04 10^3/uL (0.0-0.06); Absolute Basophil Count 0.06 10^3/uL (0.0-0.2); Absolute Eosinophil Count 0.11 10^3/uL (0.0-0.7); Absolute Lymphocyte Count 2.77 10^3/uL (1.2-3.4); Absolute Neutrophil Count 8.87 10^3/uL (1.2-6.7); Basophils % 0.5 %; Eosinophils % 0.9 %; HCT 45.2 % (36.0-46.0); Immature Grans % 0.3 %; Lymphocytes % 22.2 %; MCH 29.2 pg (27.0-33.0); MCHC 33.2 % (32.0-36.0); MCV 88 fL (80-95); MPV 10.6 fL (8.0-11.0); Neutrophils % 71.1 %; Platelet Count 275 10^3/uL (130-400); RBC 5.14 10^6/uL (3.93-5.22); RDW 12.6 % (11.7-14.6); WBC 12.48 10^3/uL (4.4-10.8)
[2024-05-05 19:33] LABS: Absolute Monocyte Count 0.62 10^3/uL (0.1-0.8)
[2024-05-05 20:02] LABS: ALT 25 U/L (14-59); AST 17 U/L (15-37); Albumin 4.5 g/dL (3.4-5.0); Alkaline Phosphatase 83 U/L (46-116); Anion Gap 7.1 mmol/L (3-11); BUN 12 mg/dL (7-18); Bilirubin, Total 0.32 mg/dL (0.2-1.0); CO2 29.9 mmol/L (21.0-32.0); CREATININE 0.9 mg/dL (0.55-1.02); Calcium 9.8 mg/dL (8.5-10.1); Chloride 104 mmol/L (98-107); Estimated GFR 93.86 (mL/min/1.73m2); Glucose 80 mg/dL (74-106); Lipase 24 U/L (<78); Magnesium 2.2 mg/dL (1.8-2.4); Potassium 3.8 mmol/L (3.5-5.1); Sodium 141 mmol/L (136-145); Total Protein 8.5 g/dL (6.4-8.2)
[2024-05-05 20:04] LABS: HCG Qual (Serum) Negative
[2024-05-05 20:26] LABS: COVID-19 PCR Negative (Negative); Influenza A PCR Negative (Negative); Influenza B PCR Negative (Negative); RSV PCR Negative (Negative)
[2024-05-05 20:28] LABS: Source Nasopharynx
[2024-05-05 20:37] LABS: Bilirubin Negative (Negative); Blood Negative (Negative); Clarity Clear (Clear); Glucose Negative (Negative); Ketones Negative (Negative); Leukocyte Esterase Negative (Negative); Nitrite Negative (Negative); Urobilinogen 0.2 mg/dL (Up to 0.2)
[2024-05-05 20:38] LABS: Bacteria Negative HPF (Negative); C & S Indicated? No; Casts Negative LPF (Negative); Crystals Negative HPF (Negative); Epithelial Cells Negative HPF (Negative); Mucus Negative (Negative); RBC Negative HPF (0-2); WBC Negative HPF (0-5)
--- NOTE | 2024-05-05 21:10 | DI.RAD_ITS ---
Exam(s) XR THORACIC SPINE COMPLETE EXAM: XR THORACIC SPINE COMPLETE CLINICAL HISTORY: back pain post fall. TECHNIQUE: 2D digital imaging was performed. COMPARISON: No exams were available for comparison FINDINGS: Two views-AP and lateral: There is no evidence of thoracic fracture nor listhesis. No significant disc space narrowing. No wi dening of the paraspinal lines evident. No scoliosis. Bone density normal. No osseous lesions. IMPRESSION: No acute osseous findings in the thoracic spinal column. DATA REPOSITORY: RADIATION DOSE DELIVERED:
--- NOTE | 2024-05-05 21:10 | DI.RAD_ITS ---
Exam(s) XR CHEST 2V PA LATERAL EXAM: XR CHEST 2V PA LATERAL CLINICAL HISTORY: back pain post fall. TECHNIQUE: 2D digital imaging was performed. COMPARISON: CR,XR XR CHEST 2V PA LATERAL from 01/27/2024 FINDINGS: 2 views: Heart size is normal. The mediastinum is not widened. Lungs are clear. No infiltrates nor pleural effusions. Density in left hilar region is most probabl y vascular. No fractures evident. IMPRESSION: No acute pulmonary findings. No fractures. DATA REPOSITORY: RADIATION DOSE DELIVERED:
--- NOTE | 2024-05-05 21:11 | DI.RAD_ITS ---
Exam(s) XR LUMBAR SPINE AP, LAT EXAM: XR LUMBAR SPINE AP, LAT CLINICAL HISTORY: back pain post fall. TECHNIQUE: 2D digital imaging was performed. COMPARISON: No exams were available for comparison FINDINGS: 3 views No evidence of fracture, listhesis, nor pars interarticularis defects. No significant disc space marlon rowing. No scoliosis. SI joints unremarkable. Transverse process is intact. Bone density normal. No osseous lesions. IMPRESSION: No acute osseous findings in the lumbosacral spine. DATA REPOSITORY: RADIATION DOSE DELIVERED:
--- NOTE | 2024-05-05 21:46 | DI.VRAD_ITS ---
PROCEDURE INFORMATION: Exam: XR Lumbosacral Spine Exam date and time: 05/05/2024 9:01 PM Age: 18 years old Clinical indication: Back pain post fall TECHNIQUE: Imaging protocol: Radiologic exam of the lumbosacral spine. Views: 2 or 3 views. COMPARISON: CT ABDOMEN PELVIS W 07/26/2023 11:35 PM FINDINGS: Bones/joints: Normal. No acute fracture. Normal alignment. Soft tissues: Unremarkable. IMPRESSION: No acute findings. Dictated and Authenticated by: Vicente Aguilar MD. Orderin Kianna Mistry MD
--- NOTE | 2024-05-05 21:47 | DI.VRAD_ITS ---
PROCEDURE INFORMATION: Exam: XR Chest Exam date and time: 05/05/2024 8:58 PM Age: 18 years old Clinical indication: Back pain post fall TECHNIQUE: Imaging protocol: Radiologic exam of the chest. Views: 2 views. COMPARISON: CR XR CHEST 2V PA LATERAL 01/27/2024 7:50 PM FINDINGS: Lungs: No alveolar infiltrate. Pleural spaces: No pleural fluid collection. No pneumothorax. Heart/Mediastinum: Normal heart size. Bones/joints: No acute fracture. IMPRESSION: 1. No acute fracture. 2. No active pulmonary disease. Dictated and Authenticated by: Vicente Aguilar MD. Orderin Kianna Mistry MD
--- NOTE | 2024-05-05 21:47 | DI.VRAD_ITS ---
PROCEDURE INFORMATION: Exam: XR Thoracic Spine Exam date and time: 05/05/2024 9:02 PM Age: 18 years old Clinical indication: Back pain post fall TECHNIQUE: Imaging protocol: Radiologic exam of the thoracic spine. Views: 3 views. COMPARISON: CR XR LUMBAR SPINE AP, LAT 05/05/2024 9:01 PM FINDINGS: Bones/joints: Normal. No acute fracture. Normal alignment. Soft tissues: Unremarkable. IMPRESSION: No acute findings. Dictated and Authenticated by: Vicente Aguilar MD. Orderin Kianna Mistry MD
--- NOTE | 2024-05-09 08:07 | W.ED.GENAD ---
Discharge Plan Disposition Patient Disposition: Home Condition: Stable Discharge Details Clinical Impression: AMS (altered mental status) Primary Care Provider: Mariela Lawson ED Provider: Fidelia Hutchison Home Meds and New Rx's Prescriptions: Continued Nexplanon 68 mg implant 1 implant subdermal ONCE Rx Instructions: as a single dose levetiracetam 500 mg tablet 500 mg PO Q12H Qty: 60 5RF Rx Instructions: Take 500mg HS x 1wk, then BID [id number] thereafter albuterol sulfate [ProAir HFA] 90 mcg/actuation HFA aerosol inhaler 2 puff Inhalation Q4H PRN Qty: 8.5 0RF dextroamphetamine-amphetamine [Adderall] 12.5 mg tablet 15 mg PO DAILY MDD 12.5 mg Rx Instructions: take one tablet in the afternoon daily Discharge Instructions Additional Instructions: Follow-up with the neurologist regarding EEG and MRI, your tests today are very reassuring, continue taking your Keppra. The results of your testing Dr. Chavez, neurology return earlier should you have new or worsening complaints Referrals: Cherri Chavez MD [ [facility] STAFF PHYSICIAN] - 2 days Mariela Lawson [Primary Care Provider] - Discharge Data Discharge Date/Time-TO BE ENTERED AT DEPARTURE: 05/05/24 22:16 HPI General Date/Time Provider Initiated Documentation: 05/05/24 19:03. HPI Narrative: This 18-year-old female presents with report of possible seizure at home. This was unwitnessed states she has had similar episodes in the past and is currently taking Keppra which she has been taking regularly. She states she had a typical prodrome and think she fell backward, she woke up on the ground. She denies any illicit drug use or alcohol consumption. She has any nausea or vomiting or infectious signs or symptoms. She denies any chance of Related Data Home Medications ?Medication ?Instructions ?Recorded ?Confirmed albuterol sulfate 90 mcg/actuation 2 puff inhalation Q4H PRN #8.5 05/11/18 05/05/24 aerosol inhaler (ProAir HFA) grams etonogestrel 68 mg subdermal 1 implant subdermal ONCE 05/10/20 05/05/24 implant (Nexplanon) dextroamphetamine-amphetamine 12.5 15 mg PO DAILY 11/01/23 05/05/24 mg tablet (Adderall) levetiracetam 500 mg tablet 500 mg PO Q12H #60 tabs 04/22/24 05/05/24 Previous Rx's ?Medication ?Instructions ?Recorded albuterol sulfate 90 mcg/actuation 2 puff inhalation Q4H PRN #8.5 05/11/18 aerosol inhaler (ProAir HFA) grams levetiracetam 500 mg tablet 500 mg PO Q12H #60 tabs 04/22/24 Allergies Allergy/AdvReac Type Severity Reaction Status Date / Time Penicillins Allergy Intermediate RASH Verified 05/05/24 18:54 amoxicillin Allergy rash Verified 05/05/24 18:54 General Stated Complaint: Seizure CHUY: 4 Exam Narrative Exam Narrative: Alert and oriented 18-year-old female in no acute distress without visible evidence of trauma, tenderness with palpation overlying thoracic and lumbar spine, no cervical spine tenderness, no visible sign of head trauma, no tongue injury, no incontinence, no abdominal tenderness, GCS 14, pupils equal round reactive to light and accommodation, following all basic commands Course Vital Signs Vital signs: Vital Signs Temperature 37.2 C 05/05/24 18:50 Pulse 71 05/05/24 18:50 Respiratory Rate 16 05/05/24 18:50 Blood Pressure 113/49 L 05/05/24 18:50 Pulse Oximetry 98 05/05/24 18:50 Temperature 37.2 C 05/05/24 18:50 Pulse 68 05/05/24 22:15 Pulse 92 H 05/05/24 21:50 Respiratory Rate 18 05/05/24 22:15 Respiratory Effort Normal 05/05/24 21:06 Respiratory Depth Normal 05/05/24 21:06 Respiratory Pattern Normal 05/05/24 21:06 Blood Pressure 109/62 05/05/24 22:15 Blood Pressure Mean 60 05/05/24 21:46 Pulse Oximetry 100 05/05/24 22:15 Pain Level 10 05/05/24 18:50 Lab/Test Results Lab/Test Results: Laboratory Tests Range/Units 05/05/24 05/05/24 05/05/24 19:20 19:28 20:25 WBC (4.4-10.8) 10^3/uL 12.48 H RBC (3.93-5.22) 10^6/uL 5.14 Hgb (11.2-15.7) g/dL 15.0 Hct (36.0-46.0) % 45.2 MCV (80-95) fL 88 MCH (27.0-33.0) pg 29.2 MCHC (32.0-36.0) % 33.2 RDW (11.7-14.6) % 12.6 Plt Count (130-400) 10^3/uL 275 MPV (8.0-11.0) fL 10.6 Immature Gran % % 0.3 Neutrophils % % 71.1 Lymphocytes % % 22.2 Monocytes % % 5.0 Eosinophils % % 0.9 Basophils % % 0.5 Nucleated RBC % (0.0-0.3) % 0.0 Absolute Neutrophils (1.2-6.7) 10^3/uL 8.87 H Absolute Lymphocytes (1.2-3.4) 10^3/uL 2.77 Absolute Monocytes (0.1-0.8) 10^3/uL 0.62 Absolute Eosinophils (0.0-0.7) 10^3/uL 0.11 Absolute Basophils (0.0-0.2) 10^3/uL 0.06 Sodium (136-145) mmol/L 141 Potassium (3.5-5.1) mmol/L 3.8 Chloride (98-107) mmol/L 104 Carbon Dioxide (21.0-32.0) mmol/L 29.9 Anion Gap (3-11) mmol/L 7.1 BUN (7-18) mg/dL 12 Creatinine (0.55-1.02) mg/dL 0.9 Est GFR (CKD-EPI 2020) (mL/min/1.73m2) 93.86 Glucose (74-106) mg/dL 80 Calcium (8.5-10.1) mg/dL 9.8 Magnesium (1.8-2.4) mg/dL 2.2 Total Bilirubin (0.2-1.0) mg/dL 0.32 AST (15-37) U/L 17 ALT (14-59) U/L 25 Alkaline Phosphatase (46-116) U/L 83 Total Protein (6.4-8.2) g/dL 8.5 H Albumin (3.4-5.0) g/dL 4.5 Lipase (<78) U/L 24 Serum HCG, Qual Negative Urine Color (Yellow) Yellow Urine Clarity (Clear) Clear Urine pH (5-8) 7.0 Ur Specific Wisner (1.005-1.025) 1.020 Urine Protein (Neg-Trace) mg/dL 30 H Urine Ketones (Negative) mg/dL Negative Urine Blood (Negative) Negative Urine Nitrite (Negative) Negative Urine Bilirubin (Negative) Negative Urine Urobilinogen (Up to 0.2) mg/dL 0.2 Ur Leukocyte Esterase (Negative) Negative Urine RBC (0-2) HPF Negative Urine WBC (0-5) HPF Negative Ur Epithelial Cells (Negative) HPF Negative Urine Crystals (Negative) HPF Negative Urine Bacteria (Negative) HPF Negative Urine Casts (Negative) LPF Negative Urine Mucus (Negative) Negative Ur Culture Indicated? No Urine Glucose (Negative) mg/dL Negative COVID-19 Source Nasopharynx SARS-CoV-2 (PCR) (Negative) Negative Influenza Type A (PCR) (Negative) Negative Influenza Type B (PCR) (Negative) Negative RSV (PCR) (Negative) Negative Medical Decision Making 18-year-old female no acute distress, no postictal state on arrival, mild leukocytosis 12,000 electrolytes all remain within normal limits and test was negative I did review patient's MRI and prior CT imaging and I see no clear indication for repeat imaging at this time. There is no significant reported head trauma and patient is at baseline mentation. X-rays, thoracic and lumbar spine were reviewed by me and radiology interpretation was also reviewed. I also spent 5 minutes reviewing patient's EEG and MRI that were ordered by her neurologist, Dr. Chavez. Interestingly there is no evidence of obvious seizure-like activity on her EEG. Patient is flu negative and RSV negative in addition to COVID at this time. Patient remains alert and oriented, her stepfather is in the room and I believe at this time she is safe to be discharged home in the care of her stepfather. I did give patient a dose of IV Keppra and will continue on her regularly prescribed Keppra at home. I will not increase her Keppra as her EEG was benign but I will recommend that she follow-up with Dr. Chavez closely in the outpatient setting. I did consider substance abuse, infectious etiology, however patient's chest x-ray and diagnostic labs are relatively reassuring. There is mild leukocytosis which if patient develops a fever or any infectious signs or symptoms could be followed. 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 Contraception (Acute 09/22/23) Nexplanon Medical History Asthma Allergy to penicillin ADHD (attention deficit hyperactivity disorder) Insomnia Surgical History lump removal, behind right ear Had surgery at [facility] [place] Removal of foreign body ROCK REMOVED FROM EAR Family History Mother Diabetes Essential hypertension Conductive hearing loss, childhood onset Hyperlipidemia Mental disorder BIPOLAR, depression, anxiety Neoplasm ADHD (attention deficit hyperactivity disorder) Asthma Headache Seizure Father Essential hypertension Hyperlipidemia Sister Substance abuse alcohol abuse Other Substance abuse grandparent - alcohol Hyperlipidemia grandparent Neoplasm grandparent Asthma grandparent Social History Smoking/Tobacco Use Status: Never Smoking risk assessment performed?: Yes Alcohol Intake: never Drug use: Rarely Substance use type: marijuana Details: Hx of hyperemesis from cannabinoids. Housing: apartment Pets and animals: Yes Pets and animals: cat(s), bird(s) and other Details: rabbit Do you feel safe at home: Yes Do you feel safe in your relationship?: Yes Additional Social history: sister Felicity Mitchell, 2 yrs younger History History 0 Para Hx # Term Pregnancies Multiple births Hx # Pregnancies Ectopic pregnancies AB induced Hx Number of Living Children AB spontaneous
== END 2024-05-05 22:16 | disposition home or self-care (01) ==
PROVIDERS: Emergency Provider Physician Assistant; PCP Nurse Practitioner Family
DX: R56.9 Unspecified convulsions (principal); R41.82 Altered mental status, unspecified
CPT/HCPCS: 80053; 83690; 87637; 96365; 96366; 99284; 71046; 72072; 72100; 81003; 81015; 83735; 84703; 85025; J1953

== ENCOUNTER 2024-09-13 23:04 | Emergency (ER) | payer MEDICAID, SELFPAY ==
--- NOTE | 2024-09-13 23:00 | RT.EKG_ITS ---
APPROVED REPORT Exam: Resting ECG Reason for Exam: indigestion, sharp midsternal pain Patient Location: E HR:75 bpm ECG Measurements Heart Rate 75 AXIS VT 131 P 34 QRSd 80 QRS 27 QT 369 T 47 QTc 413 Conclusion Sinus rhythm...normal P axis, V-rate 60- 99 Artifact in V3 otherwise normal EKG.
[2024-09-13 23:10] VITALS: BP 109/74; PULSE 81; RESP 16; TEMP 36.7; O2SAT 96
--- NOTE | 2024-09-13 23:17 | ED.GENADUL_ITS ---
Discharge Plan Disposition Patient Disposition: Home Condition: Improving Discharge Details Clinical Impression: Symptoms of gastroesophageal reflux Primary Care Provider: Mariela Lawson ED Provider: Sammy Roe Marcella Meds and New Rx's Prescriptions: New famotidine 20 mg tablet 20 mg PO QHS Qty: 30 0RF Continued Nexplanon 68 mg implant 1 implant subdermal ONCE Rx Instructions: as a single dose levetiracetam 500 mg tablet 500 mg PO Q12H Qty: 180 3RF albuterol sulfate [ProAir HFA] 90 mcg/actuation HFA aerosol inhaler 2 puff Inhalation Q4H PRN Qty: 8.5 0RF dextroamphetamine-amphetamine [Adderall] 12.5 mg tablet 15 mg PO DAILY MDD 12.5 mg Rx Instructions: take one tablet in the afternoon daily Discharge Instructions Instructions: Acid Reflux, Adult and Adolescent ED Additional Instructions: Your symptoms you presented with are consistent with acid reflux and improved with antiemetic and GI cocktail. We will start you on medication for acid reflux and have you follow-up with your primary care in the next week or 2 for recheck. Return to ED for any new or worsening pain, persistent vomiting, fever, other concerns. Referrals: Mariela Lawson [Primary Care Provider] - [facility] General Mode of arrival: ambulatory . Date/Time Provider Initiated Documentation: 09/13/24 23:17 . Limitations to Documentation: no limitations . Information obtained by: patient, RN notes reviewed and old records reviewed . HPI Narrative: Patient presenting to ED with complaint of developing nausea and regurgitation as well as pain from her upper abdomen to her throat that occurred this evening after eating. She reports 1 episode of vomiting. She has continued pain even now. She still feels nauseated. She has had similar symptoms in the past though not frequently. She reports that her legs felt very cold but her upper body was warm. She denies any syncope or loss of consciousness. She feels a little short of breath. Has not been ill recently and denies any fever, cough. Related Data Home Medications ?Medication ?Instructions ?Recorded ?Confirmed albuterol sulfate 90 mcg/actuation 2 puff inhalation Q4H PRN #8.5 05/11/18 09/13/24 aerosol inhaler (ProAir HFA) grams etonogestrel 68 mg subdermal 1 implant subdermal ONCE 05/10/20 09/13/24 implant (Nexplanon) dextroamphetamine-amphetamine 12.5 15 mg PO DAILY 11/01/23 09/13/24 mg tablet (Adderall) levetiracetam 500 mg tablet 500 mg PO Q12H #180 tabs 06/09/24 09/13/24 famotidine 20 mg tablet 20 mg PO QHS #30 tabs 09/14/24 Previous Rx's ?Medication ?Instructions ?Recorded albuterol sulfate 90 mcg/actuation 2 puff inhalation Q4H PRN #8.5 05/11/18 aerosol inhaler (ProAir HFA) grams levetiracetam 500 mg tablet 500 mg PO Q12H #180 tabs 06/09/24 famotidine 20 mg tablet 20 mg PO QHS #30 tabs 09/14/24 Allergies Allergy/AdvReac Type Severity Reaction Status Date / Time Penicillins Allergy Intermediate RASH Verified 09/13/24 23:23 amoxicillin Allergy rash Verified 09/13/24 23:23 General Stated Complaint: Nausea/Vomit/Diar CHUY: 3 Exam Narrative Exam Narrative: Const: WDWN female in NAD. VS per triage. HEENT: NC/AT. Normal facial exam. Neck: Supple. Trachea midline. Lungs: Normal respiratory effort. Lungs are clear. Cor: RRR without murmur. Good radial pulses. GI: Soft/ND. Mild diffuse voluntary tenderness throughout. Neuro: A+O x 3. Normal speech, mentation, gait. Cranial nerves II - XII grossly intact. No gross motor or sensory deficit. Ext: No C/C/E. Course Vital Signs Vital signs: Vital Signs Temperature 98.0 F 09/13/24 23:10 Pulse 81 09/13/24 23:10 Respiratory Rate 16 09/13/24 23:10 Blood Pressure 109/74 09/13/24 23:10 Pulse Oximetry 96 09/13/24 23:10 Temperature 98.0 F 09/13/24 23:10 Temperature Source Oral 09/13/24 23:10 Pulse 81 09/13/24 23:10 Respiratory Rate 16 09/13/24 23:10 Blood Pressure 109/74 09/13/24 23:10 Blood Pressure Position Supine 09/13/24 23:10 Pulse Oximetry 96 09/13/24 23:10 Oxygen Delivery Method Room Air 09/13/24 23:10 Oxygen Flow Rate 0 09/13/24 23:10 Pain Level 3 09/13/24 23:10 Medical Decision Making Patient presents to ED with complaint of regurgitation, vomiting, chest pain from the epigastric region to her throat that began after eating tonight. Denies any syncope. States her legs felt cold and her upper body felt warm. Still states that she is having pain. An EKG from triage is completely normal except for artifact in V3. Symptoms are most consistent with reflux and esophageal spasm. I am not concerned regarding ACS, PE, dissection. Patient given Zofran ODT and a GI cocktail. On recheck in 30 minutes completely asymptomatic and feeling fine. I do not believe she needs imaging or labs. Will start her on famotidine 20 mg at night. She is asked to follow-up with primary care in the next 1 to 2 weeks. Return precautions provided. Medical Records Medical records reviewed: Yes I reviewed the patient's medical records. 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 Contraception (Acute 09/22/23) Nexplanon Medical History Seizure-like activity Asthma Allergy to penicillin ADHD (attention deficit hyperactivity disorder) Surgical History lump removal, behind right ear [place] [facility] [place] of foreign body ROCK REMOVED FROM EAR Family History Mother Diabetes Essential hypertension Conductive hearing loss, childhood onset Hyperlipidemia Mental disorder BIPOLAR, depression, anxiety Neoplasm ADHD (attention deficit hyperactivity disorder) Asthma Headache Seizure Father Essential hypertension Hyperlipidemia Sister Substance abuse alcohol abuse Other Substance abuse grandparent - alcohol Hyperlipidemia grandparent Neoplasm grandparent Asthma grandparent Social History Smoking/Tobacco Use Status: Never Smoking risk assessment performed?: Yes Alcohol Intake: never Drug use: Rarely Substance use type: marijuana Details: Hx of hyperemesis from cannabinoids. Housing: apartment Pets and animals: Yes Pets and animals: cat(s), bird(s) and other Details: rabbit Do you feel safe at home: Yes Do you feel safe in your relationship?: Yes Additional Social history: sister Felicity Mitchell, 2 yrs younger History History 0 Para Hx # Term Pregnancies Multiple births Hx # Pregnancies Ectopic pregnancies AB induced Hx Number of Living Children AB spontaneous
[2024-09-13] MEDS: Ondansetron O.D.T. 4 MG TABEF PO (23:51)
[2024-09-14 00:34] VITALS: BP 105/72; PULSE 74; RESP 16; O2SAT 96
== END 2024-09-14 00:35 | disposition home or self-care (01) ==
PROVIDERS: Emergency Provider Emergency Medicine; PCP Nurse Practitioner Family
DX: K21.9 Gastro-esophageal reflux disease without esophagitis (principal)
CPT/HCPCS: 93005; 99283; 93010

== ENCOUNTER 2024-11-04 16:51 | Emergency (ER) | payer MEDICAID, SELFPAY ==
[2024-11-04 16:54] VITALS: BP 103/70; PULSE 86; RESP 16; O2SAT 96
[2024-11-04] MEDS: Ibuprofen 600 MG TAB PO (17:34)
[2024-11-04] MEDS: Dexamethasone 10 MG/ML VIAL PO (17:34)
--- NOTE | 2024-11-04 20:49 | ED.GENADUL_ITS ---
Discharge Plan Disposition Patient Disposition: Home Condition: Stable Discharge Details Clinical Impression: Pharyngitis Primary Care Provider: Mariela Lawson ED Provider: Fidelia Hutchison Home Meds and New Rx's Prescriptions: Continued Nexplanon 68 mg implant 1 implant subdermal ONCE Rx Instructions: as a single dose levetiracetam 500 mg tablet 500 mg PO Q12H Qty: 180 3RF albuterol sulfate [ProAir HFA] 90 mcg/actuation HFA aerosol inhaler 2 puff Inhalation Q4H PRN Qty: 8.5 0RF dextroamphetamine-amphetamine [Adderall] 12.5 mg tablet 15 mg PO DAILY MDD 12.5 mg Rx Instructions: take one tablet in the afternoon daily famotidine 20 mg tablet 20 mg PO QHS Qty: 30 0RF Discharge Instructions Instructions: Sore Throat, Adult ED Additional Instructions: motrin and tylenol for pain control popsicles please have mono checked if symptoms last >3 days Referrals: Mariela Lawson [Primary Care Provider, Medicine] Discharge Data Discharge Date/Time-TO BE ENTERED AT DEPARTURE: 11/04/24 17:54 HPI General Date/Time Provider Initiated Documentation: 11/04/24 16:54 . HPI Narrative: 19-year-old female with sore throat and hoarse voice starting this morning. No exposure to sick individuals, fever, chills, or globus sensation. Related Data Home Medications ?Medication ?Instructions ?Recorded ?Confirmed albuterol sulfate 90 mcg/actuation 2 puff inhalation Q 4H PRN #8.5 05/11/18 11/04/24 aerosol inhaler (ProAir HFA) grams etonogestrel 68 mg subdermal 1 implant subdermal ONCE 05/10/20 11/04/24 implant (Nexplanon) dextroamphetamine-amphetamine 12.5 15 mg PO DAILY 10/0611/04/24 mg tablet (Adderall) levetiracetam 500 mg tablet 500 mg PO Q12H #180 tabs 0 06/09/24 11/04/24 famotidine 20 mg tablet 20 mg PO QHS #30 tabs 11/04/24 Previous Rx's ?Medication ?Instructions ?Recorded albuterol sulfate 90 mcg/actuation 2 puff inhalation Q 4H PRN #8.5 02/04/19 aerosol inhaler (ProAir HFA) grams levetiracetam 500 mg tablet 500 mg PO Q12H #180 tabs 0 06/09/24 famotidine 20 mg tablet 20 mg PO QHS #30 tabs Allergies Allergy/AdvReac Type Severity Reaction Status Date / Time Penicillins Allergy Intermediate RASH Verified 09/13/24 23:23 amoxicillin Allergy rash Verified 09/13/24 23:23 General Stated Complaint: Sorethroat CHUY: 4 Exam Narrative Exam Narrative: General Appearance: Alert and oriented, no acute distress. Vital signs: Within normal limits. HEENT: Mildly erythematous oropharynx, no tonsillar exudate, midline uvula, no t rismus. Hoarse voice, no stridor. Respiratory: Lungs clear to auscultation. Cardiovascular: Regular cardiac rate and rhythm. Skin: Warm and dry, no rash. Neurological: Normal. Course Vital Signs Vital signs: Vital Signs Pulse 86 11/04/24 16:54 Respiratory Rate 16 11/04/24 16:54 Blood Pressure 103/70 11/04/24 16:54 Pulse Oximetry 96 11/04/24 16:54 Pulse 86 11/04/24 16:54 Respiratory Rate 16 11/04/24 16:54 Blood Pressure 103/70 11/04/24 16:54 Pulse Oximetry 96 11/04/24 16:54 Oxygen Delivery Method Room Air 11/04/24 16:54 Oxygen Flow Rate 0 11/04/24 16:54 Lab/Test Results Lab/Test Results: 11/04/24 16:57 Tonsil - Not Specified Group A Streptococcus Culture - Pending POC Strep Test-JYOTI(Rapid) Start: 11/04/24 16:54 Freq: .Rapid Strep Test Status: Discharge Protocol: Document 11/04/24 17:17 RENATA (Rec: 11/04/24 17:17 RENATA [id number]) Strep test-JYOTI(Rapid)-POC POC-Strep test-JYOTI ( Negative Rapid) POC-Strep test-JYOTI (Rapid) Negative Medical Decision Making Strep test negative. Initial Assessment: 19-year-old female with sore throat and hoarse voice starting this morning. No fever, chills, or globus sensation. Mildly erythematous oropharynx, no tonsillar exudate, negative strep test. ED Course: - Administered Decadron. - Recommended supportive care with Motrin and Tylenol. - Return precautions reviewed. Final Assessment: Patient presented with sore throat and hoarse voice. Negative strep test. Administered Decadron and recommended supportive care with Motrin and Tylenol. 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 Contraception (Acute 09/22/23) Nexplanon Medical History Seizure-like activity Asthma Allergy to penicillin ADHD (attention deficit hyperactivity disorder) Surgical History lump removal, behind right ear Had surgery at [facility] [place] Removal of foreign body ROCK REMOVED FROM EAR Family History Mother Diabetes Essential hypertension Conductive hearing loss, childhood onset Hyperlipidemia Mental disorder BIPOLAR, depression, anxiety Neoplasm ADHD (attention deficit hyperactivity disorder) Asthma Headache Seizure Father Essential hypertension Hyperlipidemia Sister Substance abuse alcohol abuse Other Substance abuse grandparent - alcohol Hyperlipidemia grandparent Neoplasm grandparent Asthma grandparent Social History Smoking/Tobacco Use Status: Never Smoking risk assessment performed?: Yes Alcohol Intake: never Drug use: Rarely Substance use type: marijuana Details: Hx of hyperemesis from cannabinoids. Housing: apartment Pets and animals: Yes Pets and animals: cat(s), bird(s) and other Details: rabbit Do you feel safe at home: Yes Do you feel safe in your relationship?: Yes Additional Social history: sister Felicity Mitchell, 2 yrs younger History History 0 Para Hx # Term Pregnancies Multiple births Hx # Pregnancies Ectopic pregnancies AB induced Hx Number of Living Children AB spontaneous
== END 2024-11-04 17:54 | disposition home or self-care (01) ==
PROVIDERS: Emergency Provider Physician Assistant; PCP Nurse Practitioner Family
DX: J02.9 Acute pharyngitis, unspecified (principal)
CPT/HCPCS: 87880; 99283; 87081; J1100

== ENCOUNTER 2024-12-08 13:07 | Emergency (ER) | payer MEDICAID, SELFPAY ==
[2024-12-08 13:10] VITALS: BP 109/75; PULSE 83; RESP 18; TEMP 36.7; O2SAT 98
[2024-12-08 13:20] VITALS: BP 109/63; PULSE 83; RESP 18; TEMP 36.7; O2SAT 98
--- NOTE | 2024-12-08 13:23 | W.ED.GENAD ---
Discharge Plan Disposition Patient Disposition: Home Discharge Details Clinical Impression: Acute epigastric pain Primary Care Provider: Mariela Lawson ED Provider: Aquilino Muhammad Home Meds and New Rx's Prescriptions: Continued Nexplanon 68 mg implant 1 implant subdermal ONCE Rx Instructions: as a single dose levetiracetam 500 mg tablet 500 mg PO Q12H Qty: 180 3RF albuterol sulfate [ProAir HFA] 90 mcg/actuation HFA aerosol inhaler 2 puff Inhalation Q4H PRN Qty: 8.5 0RF dextroamphetamine-amphetamine [Adderall] 12.5 mg tablet 15 mg PO DAILY MDD 12.5 mg Rx Instructions: take one tablet in the afternoon daily famotidine 20 mg tablet 20 mg PO QHS Qty: 30 0RF Discharge Instructions Additional Instructions: You were seen in the emergency department for your abdominal pain. Your blood work was quite reassuring and showed no sign of infection and no sign of anemia. You have normal renal function and no abnormalities of your liver function test. As we discussed, please return to the emergency department if you develop nausea or vomiting that does not stop if you develop any fevers or if you pass out. Otherwise please follow-up with your primary care provider. Please take these nausea medications as directed. Discharge Data Discharge Date/Time-TO BE ENTERED AT DEPARTURE: 12/08/24 15:15 HPI General Date/Time Provider Initiated Documentation: 12/08/24 13:23. HPI Narrative: MDM This is a quite well-appearing normothermic and not tachycardic previously healthy 19-year-old female with acute on chronic epigastric pain concerning for the possibility of pancreatitis for which patient will undergo assessment of her LFTs and her lipase. No pain out of proportion to suggest necrotizing soft tissue infection. No history of AAA so my suspicion for aortic dissection is low. No right lower quadrant tenderness to suggest appendicitis. No dysuria nor frequency to suggest UTI. No lateralizing pain or history of nephrolithiasis so my suspicion for ureterolithiasis is low. No rash to abdomen to suggest zoster. I considered referred pain from PE however the patient is PERC negative and not having chest pain so I did not send a D-dimer. In the absence of chest pain I was not suspicious for ACS based on the patient's age. No cough to suggest referred pain from pneumonia. Patient is not recently so I am not suspicious for splenic arterial aneurysm. I considered acute cholecystitis however in the absence of any right upper quadrant tenderness I did not feel that the patient required a right upper quadrant ultrasound. No diarrhea to suggest diverticulitis. I considered esophageal rupture however the patient not been vomiting so my suspicion was low for esophageal rupture and patient had no crepitance. In the absence of sore throat I was not suspicious for strep pharyngitis. No fevers to suggest mononucleosis. 2:45 PM Urinalysis nitrite negative. Trace leuk esterase. Microscopy few bacteria. Less than 5 white cells. Negative urine . Competence metabolic panel showing no ROZ. Reassuring LFTs. Glucose lower limit of normal 72. Normal reassuring lipase. CBC lacks anemia thrombocytopenia and leukocytosis. 3:04 PM I met with the patient following ketorolac famotidine ondansetron and 1 L of IV fluids. She reported feeling improved. She had not been vomiting. We discussed that she should return to the ED if she developed nausea or vomiting that did not stop if she developed worsening abdominal pain could not eat or drink or develop any dysuria or frequency. Otherwise I advised PCP follow-up. She understood her return indications and was discharged with an empiric trial of expectant outpatient management. HPI HThis is a patient presenting with abdominal pain. The patient has been experiencing abdominal discomfort for the past 10 days, specifically in the area above the belly button where there is a piercing scar. The pain extends to the under ribs and radiates to the back and spine. The patient reports occasional nausea but no fever. The patient has no history of abdominal surgeries. The patient does not consume alcohol or use drugs. The patient has not noticed any rashes. The patient has no history of kidney stones and reports no burning sensation during urination. The patient has not experienced any falls or head injuries. The patient does not have a sore throat and is not aware of anyone else being ill around them. The last intake was a few minutes ago. The pain intensifies with movement and soda consumption. Exam General: Well-appearing in no acute distress speaking in complete sentences. Lying in stretcher on her phone. Head: Normocephalic, atraumatic. Eye: Extraocular eye movements intact. No conjunctival injection. No scleral icterus. Ear, nose, mouth, throat: Grossly normal inspection. Normal voice, handling secretions normally. Neck: Trachea midline. Cardiovascular: Well-perfused distal extremities. Respiratory: Nonlabored respiration. Clear lungs bilaterally. Gastrointestinal: Nondistended abdomen. Soft. Minimal epigastric tenderness. No rebound. No guarding. No right upper quadrant tenderness. No right lower quadrant tenderness. No rash to abdomen. Musculoskeletal: No edema. Moving all 4 extremities spontaneously. Skin: Normal for age and race, grossly normal temperature and turgor. No acute rash. Neurologic: Alert and appropriate, no apparent acute deficits. Psychiatric: Mood and manner are appropriate. Grooming and personal hygiene are appropriate. Related Data Home Medications ?Medication ?Instructions ?Recorded ?Confirmed albuterol sulfate 90 mcg/actuation 2 puff inhalation Q4H PRN #8.5 05/11/18 12/08/24 aerosol inhaler (ProAir HFA) grams etonogestrel 68 mg subdermal 1 implant subdermal ONCE 05/10/20 12/08/24 implant (Nexplanon) dextroamphetamine-amphetamine 12.5 15 mg PO DAILY 11/01/23 12/08/24 mg tablet (Adderall) famotidine 20 mg tablet 20 mg PO QHS #30 tabs 09/14/24 12/08/24 levetiracetam 500 mg tablet 500 mg PO Q12H #180 tabs 12/08/24 12/08/24 Previous Rx's ?Medication ?Instructions ?Recorded albuterol sulfate 90 mcg/actuation 2 puff inhalation Q4H PRN #8.5 05/11/18 aerosol inhaler (ProAir HFA) grams famotidine 20 mg tablet 20 mg PO QHS #30 tabs 09/14/24 levetiracetam 500 mg tablet 500 mg PO Q12H #180 tabs 12/08/24 Allergies Allergy/AdvReac Type Severity Reaction Status Date / Time Penicillins Allergy Intermediate RASH Verified 12/08/24 13:19 amoxicillin Allergy rash Verified 12/08/24 13:19 General Stated Complaint: Abd Prob CHUY: 3 Course Vital Signs Vital signs: Vital Signs Temperature 36.7 C 12/08/24 13:10 Pulse 83 12/08/24 13:10 Respiratory Rate 18 12/08/24 13:10 Blood Pressure 109/75 12/08/24 13:10 Pulse Oximetry 98 12/08/24 13:10 Temperature 36.7 C 12/08/24 13:20 Temperature Source Oral 12/08/24 13:20 Pulse 83 12/08/24 13:20 Respiratory Rate 18 12/08/24 13:20 Blood Pressure 109/63 12/08/24 13:20 Blood Pressure Position Sitting 12/08/24 13:20 Pulse Oximetry 98 12/08/24 13:20 Oxygen Delivery Method Room Air 12/08/24 13:10 Oxygen Flow Rate 0 12/08/24 13:10 Pain Level 10 12/08/24 13:10 Medical Decision Making Quality:SDOH Health Related Social Needs: Health related social needs house/econ circumstance finding work lonely/isolated PFSH All Active Problems (Updated 12/08/24 @ 14:58 by Aquilino Muhammad MD) Acute epigastric pain (Acute) Insomnia (Acute) Acne (Acute) Depression (Acute) Learning difficulty (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) per school 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/ low IQ Contraception (Acute 09/22/23) Nexplanon Medical History Seizure-like activity Asthma Allergy to penicillin ADHD (attention deficit hyperactivity disorder) Surgical History lump removal, behind right ear [place] [facility] [place] of foreign body ROCK REMOVED FROM EAR Family History Mother Diabetes Essential hypertension Conductive hearing loss, childhood onset Hyperlipidemia Mental disorder BIPOLAR, depression, anxiety Neoplasm ADHD (attention deficit hyperactivity disorder) Asthma Headache Seizure Father Essential hypertension Hyperlipidemia Sister Substance abuse alcohol abuse Other Substance abuse grandparent - alcohol Hyperlipidemia grandparent Neoplasm grandparent Asthma grandparent Social History Smoking/Tobacco Use Status: Never Smoking risk assessment performed?: Yes Alcohol Intake: never Drug use: Rarely Substance use type: marijuana Details: Hx of hyperemesis from cannabinoids. stopped x 1 year now Housing: apartment Pets and animals: Yes Pets and animals: cat(s), bird(s) and other Details: rabbit Do you feel safe at home: Yes Do you feel safe in your relationship?: Yes Additional Social history: sister Felicity Mitchell, 2 yrs younger History History 0 Para Hx # Term Pregnancies Multiple births Hx # Pregnancies Ectopic pregnancies AB induced Hx Number of Living Children AB spontaneous
[2024-12-08 13:47] LABS: Glucose Negative (Negative)
[2024-12-08 13:48] LABS: Abs Immature Grans 0.01 10^3/uL (0.0-0.06); HCT 44.4 % (36.0-46.0); HGB 14.9 g/dL (11.2-15.7); Immature Grans % 0.1 %; MCH 29.4 pg (27.0-33.0); MCHC 33.6 % (32.0-36.0); MCV 88 fL (80-95); MPV 10.4 fL (8.0-11.0); Platelet Count 261 10^3/uL (130-400); RBC 5.06 10^6/uL (3.93-5.22); RDW 12.3 % (11.7-14.6); RDW-SD 39.4 fL; WBC 8.55 10^3/uL (4.4-10.8)
[2024-12-08 13:54] LABS: RBC 0-2 HPF (0-2)
[2024-12-08 13:55] LABS: C & S Indicated? No
[2024-12-08 14:04] LABS: ALT 23 U/L (14-59); AST 15 U/L (15-37); Albumin 4.6 g/dL (3.4-5.0); Alkaline Phosphatase 82 U/L (46-116); Anion Gap 6.5 mmol/L (3-11); BUN 8 mg/dL (7-18); Bilirubin, Total 0.4 mg/dL (0.2-1.0); CO2 30.5 mmol/L (21.0-32.0); Calcium 9.5 mg/dL (8.5-10.1); Chloride 104 mmol/L (98-107); Estimated GFR 107.44 (mL/min/1.73m2); Glucose 72 mg/dL (74-106); Lipase 31 U/L (<78); Potassium 3.7 mmol/L (3.5-5.1); Sodium 141 mmol/L (136-145); Total Protein 8.3 g/dL (6.4-8.2)
[2024-12-08] MEDS: Normal Saline 1,000 ML 1000 ML IV (14:21)
[2024-12-08] MEDS: Ondansetron 4 MG/2 ML VIAL IVP (14:22)
[2024-12-08] MEDS: Ketorolac 15 MG/ML VIAL IVP (14:23)
[2024-12-08] MEDS: Famotidine 20 MG/2 ML VIAL 40 MG IVP (14:24)
[2024-12-08] MEDS: Ondansetron O.D.T. 4 MG TABEF, 3 TABS/BTL PO (15:04)
[2024-12-08 15:06] VITALS: BP 105/65; PULSE 67; RESP 14; O2SAT 100
== END 2024-12-08 15:15 | disposition home or self-care (01) ==
PROVIDERS: Emergency Provider Emergency Medicine; PCP Nurse Practitioner Family
DX: R10.13 Epigastric pain (principal); R11.0 Nausea
CPT/HCPCS: 99284 ×2; 81025; 36415; 96374; 96375; 80053; 83690; 96361; 81003; 81015; 85025; J1885; J2405

== ENCOUNTER 2024-12-28 14:04 | Outpatient (REF) | payer MEDICAID, SELFPAY ==
--- NOTE | 2024-12-28 13:55 | PAPFT_PTH ---
PATIENT: Joann Richards LOC: [facility] U#:[id number] AGE/SX: 19/F ROOM: RE12/28/[address]: Lima Knapp NP : 2005 BED: DIS: 12/28/2024 SPEC #: [id number] RECD: 12/28/24 18:04 STATUS: TANVIR REZoey #: [id number] FRANCESCO: 12/28/24 13:[address]: Aria CADET,Lima DEPT: [facility] Cytology RECD BY: Fidelia Medina ENTERED: 12/28/24 18:05 SP TYPE: PAPFT OTHR DR: Mariela Lawson Tissues: 1 - CX/ENDOCX FOR PAP SMEARS Procedures: PAP THIN PREP/[facility] Screening Comments: [id number] (CHLAMYDIA/GC)
[2024-12-29 12:27] LABS: Chlamydia Result Negative (Negative); GC Result Negative (Negative)
== END 2024-12-28 14:05 | disposition home or self-care (01) ==
LOC: LBN 14:04
PROVIDERS: PCP Nurse Practitioner Family; Visit Provider Nurse Practitioner Women's Health
DX: Z12.4 Encounter for screening for malignant neoplasm of cervix (principal)
CPT/HCPCS: 87491; 87591; 88142

== ENCOUNTER 2025-02-06 10:34 | Emergency (ER) | payer MEDICAID, SELFPAY ==
[2025-02-06 10:38] VITALS: BP 115/89; PULSE 76; RESP 12; TEMP 36.6; O2SAT 97
--- NOTE | 2025-02-06 11:00 | RT.EKG_ITS ---
APPROVED REPORT Exam: Resting ECG Reason for Exam: chest pain Patient Location: E HR:67 bpm ECG Measurements Heart Rate 67 AXIS ND 151 P -32 QRSd 81 QRS 17 QT 383 T 24 QTc 406 Conclusion Sinus rhythm...normal P axis, V-rate 60- 99
--- NOTE | 2025-02-06 11:01 | W.ED.GENAD ---
Discharge Plan Disposition Patient Disposition: Home Condition: Stable Discharge Details Clinical Impression: Gastritis Primary Care Provider: Mariela Lawson ED Provider: Ba Palacios Home Meds and New Rx's Prescriptions: Continued Nexplanon 68 mg implant 1 implant subdermal ONCE Rx Instructions: as a single dose levetiracetam 500 mg tablet 500 mg PO Q12H Qty: 180 3RF norethindrone ac-eth estradiol [June ()] 1.5-30 mg-mcg tablet 1 tab PO DAILY Qty: 63 0RF albuterol sulfate [ProAir HFA] 90 mcg/actuation HFA aerosol inhaler 2 puff Inhalation Q4H PRN Qty: 8.5 0RF dextroamphetamine-amphetamine [Adderall] 12.5 mg tablet 15 mg PO DAILY MDD 12.5 mg Rx Instructions: take one tablet in the afternoon daily famotidine 20 mg tablet 20 mg PO QHS Qty: 30 0RF Discharge Instructions Instructions: Gastritis ED Additional Instructions: You were seen in the emergency department for your nausea and vomiting as well as chest pain, there is no pulmonary embolism or blood clot in the lung seen on your imaging, your cardiac enzymes are negative. Pancreas enzymes are negative and there is no acute abnormality seen in the abdomen. You likely have severe acid reflux and need to start taking your famotidine twice per day, if this improves over the next couple weeks that was the likely cause you may need to contact the general surgery office for upper endoscopy to check for any gastric ulcer. Please return for any acute emergent concerns like worsening chest pain, shortness of breath. Referrals: Mariela Lawson [Primary Care Provider, Medicine] Discharge Data Discharge Date/Time-TO BE ENTERED AT DEPARTURE: 02/06/25 15:19 HPI General Date/Time Provider Initiated Documentation: 02/06/25 10:49. HPI Narrative: 19 year-old female presents to ED today by POV/ambulating with her mother with a chief complaint of increased nausea and vomiting, burning sensation from upper abdomen, and chest with onset today- does endorse chronic reflux issues. Quality described as generalized pain, abdominal, chest, mildly short of breath, clear vomitus, no radiation to overt fever, endorses chills/sweats, denies ETOH use, denies diarrhea, denies cough, denies dizziness. Severity is described as severe. Palliating factors include nothing specific attempted- takes famotidine qHS. Provoking factors include nothing specific. Patient not anticoagulated. Related Data Home Medications Medication Instructions Recorded Confirmed albuterol sulfate 90 mcg/actuation 2 puff inhalation Q4H PRN #8.5 05/11/18 02/06/25 aerosol inhaler (ProAir HFA) grams etonogestrel 68 mg subdermal 1 implant subdermal ONCE 05/10/20 02/06/25 implant (Nexplanon) dextroamphetamine-amphetamine 12.5 15 mg PO DAILY 11/01/23 02/06/25 mg tablet (Adderall) famotidine 20 mg tablet 20 mg PO QHS #30 tabs 09/14/24 02/06/25 levetiracetam 500 mg tablet 500 mg PO Q12H #180 tabs 12/08/24 02/06/25 norethindrone acetate 1.5 1 tab PO DAILY #63 tabs 12/14/24 02/06/25 mg-ethinyl estradiol 30 mcg tablet (Junel) Previous Rx's Medication Instructions Recorded albuterol sulfate 90 mcg/actuation 2 puff inhalation Q4H PRN #8.5 05/11/18 aerosol inhaler (ProAir HFA) grams famotidine 20 mg tablet 20 mg PO QHS #30 tabs 09/14/24 levetiracetam 500 mg tablet 500 mg PO Q12H #180 tabs 12/08/24 norethindrone acetate 1.5 1 tab PO DAILY #63 tabs 12/14/24 mg-ethinyl estradiol 30 mcg tablet (Junel) Allergies Allergy/AdvReac Type Severity Reaction Status Date / Time Penicillins Allergy Intermediate RASH Verified 02/06/25 10:39 amoxicillin Allergy rash Verified 02/06/25 10:39 General Stated Complaint: Nausea/Vomit/Diar CHUY: 4 Review of Systems All systems reviewed & are unremarkable except as noted in HPI and below Exam Narrative Exam Narrative: GENERAL APPEARANCE: Well-nourished, non-toxic, awake and alert, atraumatic, no acute distress. SKIN: Warm, pink, dry, intact, without rashes/lesions/ulcerations. HEAD: Normocephalic, atraumatic, normal hair distribution for gender/age. EYES: Normal conjunctiva, no exudates on lids/lashes. ENT: Nares patent, no circumoral cyanosis, no facial swelling NECK: Supple, trachea midline, painless cervical ROM. LUNGS/CHEST: Lungs CTA bilaterally- no rhonchi/rales/wheezes diffusely, non-labored respirations, normal A/P diameter, symmetrical expansion, no chest wall deformity, diffuse chest tenderness without crepitus HEART (CV/PV): Regular rate and rhythm without murmur, no peripheral edema, no JVD. ABDOMEN: Soft, non-distended, no guarding, exquisite epigastric tenderness and RUQ tenderness. MSK: Normal ROM, no swelling/deformity to bilateral UEs or LEs, moving all extremities without weakness, no cyanosis, spine midline without tenderness, normal curvature. NEURO: Mental Status AAOx4 - alert to person, place, time, events No facial droop, no forehead involvement. Motor: No focal weakness - strength 5/5 in bilateral UEs and LEs, proximal and distal, symmetric. Sensory: sensation intact to light touch globally. Gait normal: patient ambulated without ataxia into ED room. PSYCH: euthymic, cooperative, pleasant, appropriate speech Course Vital Signs Vital signs: Vital Signs Temperature 36.6 C 02/06/25 10:38 Pulse 76 02/06/25 10:38 Respiratory Rate 12 02/06/25 10:38 Blood Pressure 115/89 02/06/25 10:38 Pulse Oximetry 97 02/06/25 10:38 Temperature 36.6 C 02/06/25 10:38 Temperature Source Oral 02/06/25 10:38 Pulse 76 02/06/25 10:38 Respiratory Rate 12 02/06/25 10:38 Blood Pressure 115/89 02/06/25 10:38 Blood Pressure Position Sitting 02/06/25 10:38 Pulse Oximetry 97 02/06/25 10:38 Oxygen Delivery Method Room Air 02/06/25 10:38 Oxygen Flow Rate 0 02/06/25 10:38 Medical Decision Making This dictation utilizes [id number] dictation software and may contain unedited grammatical errors. 19 year-old female presents to ED today by POV/ambulating with her mother with a chief complaint of increased nausea and vomiting, burning sensation from upper abdomen, and chest with onset today- does endorse chronic reflux issues. Quality described as generalized pain, abdominal, chest, mildly short of breath, clear vomitus, no radiation to overt fever, endorses chills/sweats, denies ETOH use, denies diarrhea, denies cough, denies dizziness. Severity is described as severe. Palliating factors include nothing specific attempted- takes famotidine qHS. Provoking factors include nothing specific. Patients' medical history: Nexplanon implant also on oral contraceptives, history of seizure-like activity, asthma. Family and social history: Denies EtOH use. Pertinent exam findings / vital signs include epigastric exquisite tenderness, chest tenderness, no crepitus to rib cage, benign cardiopulmonary status with stable vitals and overall nontoxic appearance, afebrile. Differential / pathologies of concern include gastritis, PE, ACS less likely, pancreatitis, biliary colic, , URI, sepsis, PUD. Diagnostic studies of: -CBC, CMP, lipase, magnesium, TSH, serial troponins, D-dimer, UA, POC urine test, respiratory PCR swab, lactate, EKG, ETOH level, CTA Chest PE Study & CT ABD/Pelvis w Contrast - CBC shows no acute abnormality - Lactate negative - CMP without acute abnormality - Serial troponins negative - Lipase negative - TSH within normal limits - UA is benign - Respiratory PCR swab negative - D-dimer 728 patient has risk factors on multiple medications, reflexed to CTA chest PE study - CTA chest PE study shows no pulmonary emboli, do not feel she has a fracture and that is likely motion artifact based on clinical exam - CTA ABD/pelvis for exquisite epigastric tenderness shows probable periportal edema, nonspecific - EKG shows 67 bpm sinus, P waves followed by narrow complex QRS with normal axis, no ST changes of ischemia, normal intervals, consistent with prior Interventions of: - 1 L IVF NS, 1 g IV Tylenol, 15 mg IV ketorolac, 4 mg IV Zofran, 40 mg IVP pantoprazole, p.o. Mylanta with near complete relief. ED Course/Assessment/Plan: 19-year-old female presents with generalized nausea and vomiting in the setting of taking famotidine for acute on chronic reflux issues, she endorses chest pain endorses exquisite abdominal epigastric pain and has tenderness focal on exam, imaging was performed which shows no acute pathology, lab workup is benign, patient likely has acute on chronic gastritis possible gastric ulcer recommend she start taking her once daily famotidine twice daily and seek a follow-up appointment with general surgery should she continue have symptoms and recommend she purchase [id number] Mylanta, patient felt better after symptomatic treatment here is restricted her criteria for any emergent concern. Findings not consistent with ACS, PE, biliary colic, pancreatitis, upper respiratory infection, pneumonia, SBO. Disposition of Gastritis. Patient verbalized understanding of the plan and return to ED criteria and engaged in shared decision making. Medical Records Medical records reviewed: Yes I reviewed the patient's medical records. Imaging Data Radiologic Study: Attestation: I personally reviewed and interpreted this imaging study as follows: Imaging: CT Scan Radiologist's impression: Exam: CTA Chest With Contrast Exam date and time: 02/06/2025 1:44 PM Clinical indication: Other: Pleuritic; Abdominal pain; Epigastric TECHNIQUE: Imaging protocol: Computed tomographic angiography of the chest with contrast. Exam focused on the arteries. COMPARISON: No relevant prior studies available. FINDINGS: Pulmonary arteries: No pulmonary emboli. Aorta: Unremarkable. No aortic aneurysm. No aortic dissection. Lungs: Unremarkable. No consolidation. No masses. Pleural spaces: Unremarkable. No pneumothorax. No pleural effusion. Heart: Unremarkable. No cardiomegaly. No pericardial effusion. Lymph nodes: Unremarkable. No enlarged lymph nodes. Bones/joints: Unremarkable. No acute fracture. Soft tissues: Unremarkable. IMPRESSION: No acute findings. PROCEDURE INFORMATION: Exam: CT Abdomen And Pelvis With Contrast Exam date and time: 02/06/2025 1:44 PM Clinical indication: Other: Pleuritic; Abdominal pain; Epigastric TECHNIQUE: Imaging protocol: Computed tomography of the abdomen and pelvis with contrast. COMPARISON: No relevant prior studies available. FINDINGS: Liver: Prominence of the intrahepatic biliary tree/periportal tracking No mass. Gallbladder and biliary ducts: Normal. No calcified stones. No ductal dilation. Pancreas: Normal. No ductal dilation. Spleen: Normal. No splenomegaly. Adrenal glands: Normal. No mass. Kidneys and ureters: Normal. No hydronephrosis. Stomach and bowel: Unremarkable. No obstruction. No mucosal thickening. Appendix: No evidence of appendicitis. Intraperitoneal space: Unremarkable. No free air. No significant fluid collection. Vasculature: Question stenosis at the origin of the celiac axis No abdominal aortic aneurysm. Lymph nodes: Unremarkable. No enlarged lymph nodes. Urinary bladder: Unremarkable as visualized. Reproductive: Unremarkable as visualized. Bones/joints: Unremarkable. No acute fracture. Soft tissues: Unremarkable. IMPRESSION: Prominent intrahepatic biliary ducts versus periportal tracking. Correlate with liver function tests as clinically indicated Question stenosis of the origin of the celiac axis Dictated and Authenticated by: Partha Rivas MD. EXAM: CT CHEST PE ABD PELVIS W CLINICAL HISTORY: pleuritic chest pain, on OCPs, epigastric severe. TECHNIQUE: Imaging Protocol: Axial CT angiography was performed with multi-slice acquisition and multi-planar and/or 3D reconstructions. CONTRAST MATERIAL: Intravenous: Omnipaque 350 Contrast volume:100 ml Oral: None COMPARISON: CT CT ABDOMEN PELVIS W from 07/26/2023 FINDINGS: CHEST: PULMONARY ARTERIES: There are no intra-arterial filling defects to suggest the presence of acute pulmonary emboli. LUNGS: There is no evidence of pulmonary infarction.No infiltrates nor significant lung nodules. There are no pleural effusions. MEDIASTINUM: There is no hilar nor mediastinal adenopathy. Partially visualized thyroid appears unremarkable. CARDIAC: Heart size is normal. There is no pericardial effusion. There is no significant shift of the interventricular septum.Caliber of thoracic aorta is within normal limits and there is no evidence of aortic dissection. OSSEOUS: No significant osseous lesions.Findings in the manubrium sternum noted which have the appearance of a sternal fracture on the lateral images. May be exaggerated by some motion artifact here. No rib fractures evident. ABDOMEN: There is no ascites. LIVER: There are no focal hepatic lesions nor dilatation of intrahepatic ducts. There is mild periportal edema in the liver. GALLBLADDER/BILIARY: No obvious gallbladder pathology. CBD is not dilated. PANCREAS: No evidence of pancreatic mass nor dilatation of the pancreatic duct. SPLEEN: Spleen is not enlarged. There are no intrasplenic lesions. Splenic and portal veins are patent. ADRENALS: There are no significant adrenal masses. KIDNEYS:No cysts evident. No calculi nor hydronephrosis. No solid renal masses. ABDOMINAL AORTA: Abdominal aorta is not enlarged. LYMPH NODES: There is no retroperitoneal or para-aortic adenopathy. ABDOMINAL WALL/GI: No evidence of significant anterior abdominal wall hernia. No bowel obstruction. PELVIS: LYMPH NODES: There is no intrapelvic nor inguinal adenopathy. GI: No evidence of appendicitis.No evidence of sigmoid diverticulitis. URINARY BLADDER: No calculi nor masses evident REPRODUCTIVE: Uterus size is age-appropriate. There are no abnormal adnexal masses nor free fluid in the adnexal regions and cul-de-sac. OSSEOUS: No significant osseous lesions. No fractures. No listhesis. Pars defects. IMPRESSION: 1. No evidence of acute pulmonary emboli nor pulmonary infarction. 2. There are no pleural effusions.No infiltrates nor concerning pulmonary nodules nor intrathoracic adenopathy. 3. Finding in the sternum which is most probably respiration motion artifact, as opposed to a true fracture. Correlation with physical exam findings recommended. 4. Mild periportal edema noted in the liver. No focal lesions in the liver. Report called by myself to ER provider 02/06/25 at 2:25 p.m. Lab Data Lab results reviewed: Yes I reviewed the patient's lab results. Labs: Laboratory Tests Range/Units 02/06/25 02/06/25 02/06/25 11:27 12:11 12:26 WBC (4.4-10.8) 10^3/uL 8.71 RBC (3.93-5.22) 10^6/uL 5.13 Hgb (11.2-15.7) g/dL 15.1 Hct (36.0-46.0) % 43.9 MCV (80-95) fL 86 MCH (27.0-33.0) pg 29.4 MCHC (32.0-36.0) % 34.4 RDW (11.7-14.6) % 11.9 Plt Count (130-400) 10^3/uL 290 MPV (8.0-11.0) fL 10.4 Immature Gran % % 0.2 Neutrophils % % 67.8 Lymphocytes % % 23.0 Monocytes % % 6.7 Eosinophils % % 1.8 Basophils % % 0.5 Nucleated RBC % (0.0-0.3) % 0.0 Absolute Neutrophils (1.2-6.7) 10^3/uL 5.91 Absolute Lymphocytes (1.2-3.4) 10^3/uL 2.00 Absolute Monocytes (0.1-0.8) 10^3/uL 0.58 Absolute Eosinophils (0.0-0.7) 10^3/uL 0.16 Absolute Basophils (0.0-0.2) 10^3/uL 0.04 D-Dimer (<500) ng/mlFEU 728 H VBG Lactate (<or=2.0) mmol/L 0.8 Sodium (136-145) mmol/L 139 Potassium (3.5-5.1) mmol/L 3.8 Chloride (98-107) mmol/L 101 Carbon Dioxide (21.0-32.0) mmol/L 27.1 Anion Gap (3-11) mmol/L 10.9 BUN (7-18) mg/dL 8 Creatinine (0.55-1.02) mg/dL 0.8 Est GFR (CKD-EPI 2020) (mL/min/1.73m2) 107.44 Glucose (74-106) mg/dL 87 Calcium (8.5-10.1) mg/dL 9.2 Magnesium (1.8-2.4) mg/dL 2.3 Total Bilirubin (0.2-1.0) mg/dL 0.2 AST (15-37) U/L 15 ALT (14-59) U/L 20 Alkaline Phosphatase (46-116) U/L 70 Troponin I (<or=51) ng/L < 4 < 4 Total Protein (6.4-8.2) g/dL 8.5 H Albumin (3.4-5.0) g/dL 4.1 Lipase (<78) U/L 26 TSH (0.36-3.74) uIU/mL 3.00 Urine Color (Yellow) Yellow Urine Clarity (Clear) Clear Urine pH (5-8) 6.5 Ur Specific [place] (1.005-1.025) 1.010 Urine Protein (Neg-Trace) mg/dL Negative Urine Ketones (Negative) mg/dL Negative Urine Blood (Negative) Trace-intact H Urine Nitrite (Negative) Negative Urine Bilirubin (Negative) Negative Urine Urobilinogen (Up to 0.2) mg/dL 0.2 Ur Leukocyte Esterase (Negative) Negative Urine RBC (0-2) HPF 3-5 H Urine WBC (0-5) HPF 0-2 Ur Epithelial Cells (Negative) HPF Few Urine Crystals (Negative) HPF Negative Urine Bacteria (Negative) HPF Negative Urine Casts (Negative) LPF Negative Urine Mucus (Negative) Negative Ur Culture Indicated? No Urine Glucose (Negative) mg/dL Negative Ethyl Alcohol (<10) mg/dL < 3.0 COVID-19 Source SARS-CoV-2 (PCR) (Negative) Influenza Type A (PCR) (Negative) Influenza Type B (PCR) (Negative) RSV (PCR) (Negative) Range/Units 02/06/25 13:19 WBC (4.4-10.8) 10^3/uL RBC (3.93-5.22) 10^6/uL Hgb (11.2-15.7) g/dL Hct (36.0-46.0) % MCV (80-95) fL MCH (27.0-33.0) pg MCHC (32.0-36.0) % RDW (11.7-14.6) % Plt Count (130-400) 10^3/uL MPV (8.0-11.0) fL Immature Gran % % Neutrophils % % Lymphocytes % % Monocytes % % Eosinophils % % Basophils % % Nucleated RBC % (0.0-0.3) % Absolute Neutrophils (1.2-6.7) 10^3/uL Absolute Lymphocytes (1.2-3.4) 10^3/uL Absolute Monocytes (0.1-0.8) 10^3/uL Absolute Eosinophils (0.0-0.7) 10^3/uL Absolute Basophils (0.0-0.2) 10^3/uL D-Dimer (<500) ng/mlFEU VBG Lactate (<or=2.0) mmol/L Sodium (136-145) mmol/L Potassium (3.5-5.1) mmol/L Chloride (98-107) mmol/L Carbon Dioxide (21.0-32.0) mmol/L Anion Gap (3-11) mmol/L BUN (7-18) mg/dL Creatinine (0.55-1.02) mg/dL Est GFR (CKD-EPI 2020) (mL/min/1.73m2) Glucose (74-106) mg/dL Calcium (8.5-10.1) mg/dL Magnesium (1.8-2.4) mg/dL Total Bilirubin (0.2-1.0) mg/dL AST (15-37) U/L ALT (14-59) U/L Alkaline Phosphatase (46-116) U/L Troponin I (<or=51) ng/L Total Protein (6.4-8.2) g/dL Albumin (3.4-5.0) g/dL Lipase (<78) U/L TSH (0.36-3.74) uIU/mL Urine Color (Yellow) Urine Clarity (Clear) Urine pH (5-8) Ur Specific [place] (1.005-1.025) Urine Protein (Neg-Trace) mg/dL Urine Ketones (Negative) mg/dL Urine Blood (Negative) Urine Nitrite (Negative) Urine Bilirubin (Negative) Urine Urobilinogen (Up to 0.2) mg/dL Ur Leukocyte Esterase (Negative) Urine RBC (0-2) HPF Urine WBC (0-5) HPF Ur Epithelial Cells (Negative) HPF Urine Crystals (Negative) HPF Urine Bacteria (Negative) HPF Urine Casts (Negative) LPF Urine Mucus (Negative) Ur Culture Indicated? 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 Medical History (Updated 02/06/25 @ 14:59 by JOCELYN Loza) Presence of subdermal contraceptive implant (09/2023) Seizure-like activity Asthma Allergy to penicillin ADHD (attention deficit hyperactivity disorder) Surgical History lump removal, behind right ear Had surgery at [facility] [place] Removal of foreign body ROCK REMOVED FROM EAR Family History Mother Diabetes Essential hypertension Conductive hearing loss, childhood onset Hyperlipidemia Mental disorder BIPOLAR, depression, anxiety Neoplasm ADHD (attention deficit hyperactivity disorder) Asthma Headache Seizure Father Essential hypertension Hyperlipidemia Sister Substance abuse alcohol abuse Other Substance abuse grandparent - alcohol Hyperlipidemia grandparent Neoplasm grandparent Asthma grandparent Social History Smoking/Tobacco Use Status: Never Smoking risk assessment performed?: Yes Alcohol Intake: never Drug use: Rarely Substance use type: marijuana Details: Hx of hyperemesis from cannabinoids. stopped x 1 year now Housing: apartment Pets and animals: Yes Pets and animals: cat(s), bird(s) and other Details: rabbit Do you feel safe at home: Yes Do you feel safe in your relationship?: Yes Additional Social history: sister Felicity Mitchell, 2 yrs younger Female Reproductive History Menstrual control method: implanted History History 0 Para Hx # Term Pregnancies Multiple births Hx # Pregnancies Ectopic pregnancies AB induced Hx Number of Living Children AB spontaneous
[2025-02-06] MEDS: ACETAMINOPHEN 1,000 MG/100 ML BAG 400 MG IVPB (11:29)
[2025-02-06] MEDS: Pantoprazole 40 MG VIAL IVP (11:30)
[2025-02-06] MEDS: Normal Saline 1,000 ML 1000 ML IV (11:30)
[2025-02-06] MEDS: Ondansetron 4 MG/2 ML VIAL IVP (11:30)
[2025-02-06] MEDS: Ketorolac 15 MG/ML VIAL IVP (11:30)
[2025-02-06 11:43] LABS: Abs Immature Grans 0.02 10^3/uL (0.0-0.06); HCT 43.9 % (36.0-46.0); HGB 15.1 g/dL (11.2-15.7); Immature Grans % 0.2 %; MCH 29.4 pg (27.0-33.0); MCHC 34.4 % (32.0-36.0); MCV 86 fL (80-95); MPV 10.4 fL (8.0-11.0); Platelet Count 290 10^3/uL (130-400); RBC 5.13 10^6/uL (3.93-5.22); RDW 11.9 % (11.7-14.6); RDW-SD 37.5 fL; WBC 8.71 10^3/uL (4.4-10.8)
[2025-02-06 12:10] LABS: D-Dimer 728 ng/mlFEU (<500)
[2025-02-06 12:12] LABS: ALT 20 U/L (14-59); AST 15 U/L (15-37); Albumin 4.1 g/dL (3.4-5.0); Alkaline Phosphatase 70 U/L (46-116); Anion Gap 10.9 mmol/L (3-11); BUN 8 mg/dL (7-18); Bilirubin, Total 0.2 mg/dL (0.2-1.0); CO2 27.1 mmol/L (21.0-32.0); Calcium 9.2 mg/dL (8.5-10.1); Chloride 101 mmol/L (98-107); Glucose 87 mg/dL (74-106); Lipase 26 U/L (<78); Magnesium 2.3 mg/dL (1.8-2.4); Potassium 3.8 mmol/L (3.5-5.1); Sodium 139 mmol/L (136-145); TSH (W/Ref FT4) 3.00 uIU/mL (0.36-3.74); Total Protein 8.5 g/dL (6.4-8.2)
[2025-02-06 12:26] LABS: Troponin I < 4 ng/L (<or=51)
[2025-02-06 12:46] LABS: Glucose Negative (Negative)
[2025-02-06 12:56] LABS: C & S Indicated? No; WBC 0-2 HPF (0-5)
[2025-02-06 12:58] LABS: Troponin I < 4 ng/L (<or=51)
--- NOTE | 2025-02-06 13:00 | DI.CT_ITS ---
Exam(s) CT CHEST PE ABD PELVIS W EXAM: CT CHEST PE ABD PELVIS W CLINICAL HISTORY: pleuritic chest pain, on OCPs, epigastric severe. TECHNIQUE: Imaging Protocol: Axial CT angiography was performed with multi- slice acquisition and multi-planar and/or 3D reconstructions. CONTRAST MATERIAL: Intravenous: Omnipaque 350 Contrast volume:100 ml Oral: None COMPARISON: CT CT ABDOMEN PELVIS W from 07/26/2023 FINDINGS: CHEST: PULMONARY ARTERIES: There are no intra-arterial filling defects to suggest the presence of acute pulmonary emboli. LUNGS: There is no evidence of pulmonary infarction.No infiltrates nor significant lung nodules. There are no pleural effusions. MEDIASTINUM: There is no hilar nor mediastinal adenopathy. Partially visualized thyroid appears unremarkable. CARDIAC: Heart size is normal. There is no pericardial effusion. There is no significant shift of the interventricular septum.Caliber of thoracic aorta is within normal limits and there is no evidence of aortic dissection. OSSEOUS: No significant osseous lesions.Findings in the manubrium sternum noted which have the appearance of a sternal fracture on the lateral images. May be exaggerated by some motion artifact here. No rib fractures evident. ABDOMEN: There is no ascites. LIVER: There are no focal hepatic lesions nor dilatation of intrahepatic ducts. There is mild periportal edema in the liver. GALLBLADDER/BILIARY: No obvious gallbladder pathology. CBD is not dilated. PANCREAS: No evidence of pancreatic mass nor dilatation of the pancreatic duct. SPLEEN: Spleen is not enlarged. There are no intrasplenic lesions. Splenic and portal veins are patent. ADRENALS: There are no significant adrenal masses. KIDNEYS:No cysts evident. No calculi nor hydronephrosis. No solid renal masses. ABDOMINAL AORTA: Abdominal aorta is not enlarged. LYMPH NODES: There is no retroperitoneal or para-aortic adenopathy. ABDOMINAL WALL/GI: No evidence of significant anterior abdominal wall hernia. No bowel obstruction. PELVIS: LYMPH NODES: There is no intrapelvic nor inguinal adenopathy. GI: No evidence of appendicitis.No evidence of sigmoid diverticulitis. URINARY BLADDER: No calculi nor masses evident REPRODUCTIVE: Uterus size is age-appropriate. There are no abnormal adnexal masses nor free fluid in the adnexal regions and cul-de-sac. OSSEOUS: No significant osseous lesions. No fractures. No listhesis. Pars defects. IMPRESSION: 1. No evidence of acute pulmonary emboli nor pulmonary infarction. 2. There are no pleural effusions.No infiltrates nor concerning pulmonary nodules nor intrathoracic adenopathy. 3. Finding in the sternum which is most probably respiration motion artifact, as opposed to a true fracture. Correlation with physical exam findings recommended. 4. Mild periportal edema noted in the liver. No focal lesions in the liver. Report called by myself to ER provider 02/06/25 at 2:25 p.m. RADIATION DOSE DELIVERED: 460.75mGy.cm Total DLP DATA REPOSITORY: All CT scans at this facility are submitted to the National Radiology Data Registry (NRDR) Dose Index Registry (DIR) with the [employer] (ACR). RADIATION OPTIMIZATION: All CT scans at this facility use at least one of these dose optimization techniques: automated exposure control; mA and/or kV adjustment per patient size (includes targeted exams where dose is matched to clinical indication); or iterative reconstruction.
[2025-02-06] MEDS: Normal Saline Flush 10 ML SYR IVP (13:47)
[2025-02-06] MEDS: Normal Saline - Diluent 50 ML VIAL IJ (13:47)
[2025-02-06] MEDS: Omnipaque 350 MG/ML 100 ML BTL IJ (13:47)
[2025-02-06 14:01] LABS: COVID-19 PCR Negative (Negative); RSV PCR Negative (Negative)
--- NOTE | 2025-02-06 14:34 | DI.VRAD_ITS ---
PROCEDURE INFORMATION: Exam: CTA Chest With Contrast Exam date and time: 02/06/2025 1:44 PM Clinical indication: Other: Pleuritic; Abdominal pain; Epigastric TECHNIQUE: Imaging protocol: Computed tomographic angiography of the chest with contrast. Exam focused on the arteries. COMPARISON: No relevant prior studies available. FINDINGS: Pulmonary arteries: No pulmonary emboli. Aorta: Unremarkable. No aortic aneurysm. No aortic dissection. Lungs: Unremarkable. No consolidation. No masses. Pleural spaces: Unremarkable. No pneumothorax. No pleural effusion. Heart: Unremarkable. No cardiomegaly. No pericardial effusion. Lymph nodes: Unremarkable. No enlarged lymph nodes. Bones/joints: Unremarkable. No acute fracture. Soft tissues: Unremarkable. IMPRESSION: No acute findings. PROCEDURE INFORMATION: Exam: CT Abdomen And Pelvis With Contrast Exam date and time: 02/06/2025 1:44 PM Clinical indication: Other: Pleuritic; Abdominal pain; Epigastric TECHNIQUE: Imaging protocol: Computed tomography of the abdomen and pelvis with contrast. COMPARISON: No relevant prior studies available. FINDINGS: Liver: Prominence of the intrahepatic biliary tree/periportal tracking No mass. Gallbladder and biliary ducts: Normal. No calcified stones. No ductal dilation. Pancreas: Normal. No ductal dilation. Spleen: Normal. No splenomegaly. Adrenal glands: Normal. No mass. Kidneys and ureters: Normal. No hydronephrosis. Stomach and bowel: Unremarkable. No obstruction. No mucosal thickening. Appendix: No evidence of appendicitis. Intraperitoneal space: Unremarkable. No free air. No significant fluid collection. Vasculature: Question stenosis at the origin of the celiac axis No abdominal aortic aneurysm. Lymph nodes: Unremarkable. No enlarged lymph nodes. Urinary bladder: Unremarkable as visualized. Reproductive: Unremarkable as visualized. Bones/joints: Unremarkable. No acute fracture. Soft tissues: Unremarkable. IMPRESSION: Prominent intrahepatic biliary ducts versus periportal tracking. Correlate with liver function tests as clinically indicated Question stenosis of the origin of the celiac axis Dictated and Authenticated by: Partha Rivas MD. Orderin Philip Cosme MD
[2025-02-06 15:18] VITALS: BP 120/86; PULSE 82; RESP 14; O2SAT 98
== END 2025-02-06 15:19 | disposition home or self-care (01) ==
PROVIDERS: Emergency Provider Physician Assistant; PCP Nurse Practitioner Family
DX: R11.2 Nausea with vomiting, unspecified (principal); R10.84 Generalized abdominal pain; Z59.89 Other problems related to housing and economic circumstances; Z60.8 Other problems related to social environment
CPT/HCPCS: 36415; 71275; 74177; 80053; 81025; 83690; 87637; 93005; 96365; 96366; 96375; 99285; 80320; 81003; 81015; 83605; 83735; 84443; 84484; 85025; 85379; 93010; 99284; J0131; J1885; J2405; J2470; J3490

== ENCOUNTER 2025-04-05 15:27 | Outpatient (REF) | payer MEDICAID, SELFPAY ==
[2025-04-05 22:07] LABS: Cannabinoids THC Negative (Negative)
== END 2025-04-05 15:28 | disposition home or self-care (01) ==
LOC: NCHCN 15:27
PROVIDERS: PCP Nurse Practitioner Family; Visit Provider Nurse Practitioner Family
DX: F90.9 Attention-deficit hyperactivity disorder, unspecified type (principal)
CPT/HCPCS: 80307